=== PATIENT | male | born 1950 | race Caucasian/White ===

== ENCOUNTER 2024-03-27 00:40 | Inpatient (IN) | payer OTHER ==
--- OUTSIDE RECORDS SUMMARY | 2024-03-27 00:43 | XMS REPORT | Continuity of Care Document ---
Author Name Unknown Address [address] [facility] [address] [place] [address] [facility] thconnect Address [address] [facility] 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 Name Role Phone MADAN FRIAS Primary Care Physician Unavailab JESSY Archer Attending Clinician Unavail able LONI FISHMAN Attending Clinician Unavailable CALCIUM SCORE SCAN, SELF REQUES Attending Clinic berna Unavailable NEHEMIAH PATEL [facility] Attending Clinician Unavailable MADAN FRIAS Attending Clinician Unavailable LONI FISHMAN Attending Clinician Unavailable ADAM VAZQUEZ APN Attending Clinician LONI Rosa Admitting Clinician Unavailable Payers Payer Name Policy Type Policy Number Effective Date Expirati on Date Source 2 M [id number] Allergies, Adverse Reactions, Alerts Allergy Name Allergy Type Status Severity Reaction(s) Onset Date Inactive Date Treating Clinician Comments Source Unable to Assess UA Active 01-18 05:57: 50 [facility] No Known Allergie s NA Active 01-15 10:04: 22 [facility] No Known Allergie s NA Active 12-23 09:06: 50 [facility] No Known Allergie s NA Active 12-22 09:39: 39 [facility] No Known Allergie s NA Active 12-22 09:39: 25 [facility] No Known Allergie s NA Active 12-22 09:39: 20 [facility] ([facility]) No Known Allergie s NA Active 12-22 09:38: 59 [facility] ([facility]) No Known Allergie s NA Active 12-22 09:38: 18 [facility] ([facility]) No Known Allergie s NA Active 11-25 14:47: 22 [facility] ([facility]) Medications Ordered Medication Name Filled Medication Name Start Date Stop Date Current Medication? Ordering Clinician Indication Dosage Frequency Signature (SIG) Comments Components Source nitroglycer in SL 0.4 MG SUBL nitroglycer in SL 0.4 MG SUBL 01-18 10:35: 00 01-18 10:35 :00 No .4mg medication :nitroglyc marina SL 0.4 MG SUBL|dose: 0.4 mg|route:S UBLINGUAL| frequency: ONE TIME [facility] [place] ([facility]) metoprolol INJ 5 MG/5 ML SOLN metoprolol INJ 5 MG/5 ML SOLN 01-18 10:35: 00 01-18 10:35 :00 No 5mg medication :metoprolo l INJ 5 MG/5 ML SOLN|dose: 5.0 mg|route:I NTRAVENOUS |frequency :ONE TIME [facility] [place] ([facility]) iopamidol-3 70 INJ 76 % SOLN iopamidol-3 70 INJ 76 % SOLN 01-18 10:19: 00 01-18 10:19 :00 No 100mL medication :iopamidol -370 INJ 76 % SOLN|dose: 100.0 mL|route:I NTRAVENOUS |frequency :ONE TIME [facility] [place] ([facility]) NS SOLN NS SOLN 01-18 10:19: 00 01-18 10:19 :00 No 50mL medication :NS SOLN|dose: 50.0 mL|route:I NTRAVENOUS |frequency :ONE TIME [facility] [place] ([facility]) 1/2 NS SOLN 1/2 NS SOLN 01-18 09:00: 00 01-18 15:55 :00 No 250mL medication :1/2 NS SOLN|dose: 250.0 mL|route:I NTRAVENOUS |frequency :ONE TIME [facility] ([facility]) nitroglycer in SL 0.4 MG SUBL nitroglycer in SL 0.4 MG SUBL 12-22 10:29: 00 12-22 09:38 :00 No .4mg medication :nitroglyc marina SL 0.4 MG SUBL|dose: 0.4 mg|route:S UBLINGUAL| frequency: ONE TIME [facility] metoprolol INJ 5 MG/5 ML SOLN metoprolol INJ 5 MG/5 ML SOLN 12-22 10:29: 00 12-22 09:38 :00 No 5mg medication :metoprolo l INJ 5 MG/5 ML SOLN|dose: 5.0 mg|route:I NTRAVENOUS |frequency :ONE TIME [facility] ([facility]) Encounters Start Date/Time End Date/Time Encounter Type Admission Type Attending [facility] Care Facility Care Department Encounter ID Source 2023-11-17 08:30:00 Inpatient [facility] [id number] [facility] 2022-01-15 10:04:26 Outpatient 3 LONI FISHMAN [facility] [id number] [facility] 2021-12-02 14:00:00 Inpatient EL CALCIUM SCORE SCAN, SELF LUCIA MYERS [id number] [facility] 2021-11-25 14:47:25 Outpatient 3 LONI FISHMANE [id number] [facility] 2021-09-02 09:53:38 Outpatient LUCIA MYERS [id number] [facility] 2024-01-09 11:16:00 2024-01-09 11:16:00 [id number] [facility] 2023-12-15 07:41:00 2023-12-15 07:41:00 Outpatient JESSY SONG [facility] [id number] [facility] 2023-08-05 09:46:00 2023-08-05 09:46:[address] [facility] [id number] [facility] 2022-02-25 08:42:00 2022-02-25 08:42:00 Outpatient BURAK LONI FISHMAN [id number] [facility] 2022-02-01 08:30:00 2022-02-01 08:30:[address] [facility] [id number] 2022-02-01 08:30:00 2022-02-01 08:30:00 Outpatient ADAM CELESTIN LUCIA MYERS [id number] [facility] 2022-01-18 20:55:00 2022-01-18 20:55:00 Outpatient Encounter [facility] [id number] 2022-01-18 15:55:00 2022-01-18 15:55:00 Outpatient 3 LONI FISHMAN [facility] [id number] [facility] ([facility] 2022-01-18 15:55:00 2022-01-18 15:55:00 Outpatient Encounter 3 LONI FISHMAN [facility] [id number] [facility] ([facility]) 2021-12-22 14:38:00 2021-12-22 14:38:00 Outpatient Encounter [facility] [id number] 2021-12-22 09:38:00 2021-12-22 09:38:00 Outpatient Encounter [facility] [id number] [facility] 2021-12-22 09:38:00 2021-12-22 09:38:00 Outpatient 3 LONI FISHMAN [facility] [id number] [facility] [place] ([facility]) 2021-11-11 13:00:00 2021-11-11 13:00:00 Outpatient BURAK ADAM VAZQUEZ [id number] [facility] 2021-09-25 13:32:00 2021-09-25 13:32:00 Outpatient ADAM CELESTIN [id number] [facility] 2021-09-02 09:31:00 2021-09-02 09:31:00 Outpatient BURAK LONI FISHMAN [id number] [facility] Results Test Description Test Time Test Comments Results Resul t Comments Source [facility] 2022-01-08 1 17:32:[address] [facility] 1950 Sex: M [address] [id number] IMAGING REPORTPatient Name: NASIM RAODate of Service: [id number]: 71 Sex: M Order #: [id number] Room: [facility]: 1950 X-Ray Number: [id number] Record Number: [id number] Hospital Number: [id number] Physician: Anthony FISHMANing Physician: CANDICE FISHMAN [facility]ASC[facility] 01/18/2022 4:44 PMHistory: sobComparisons: None Available.Maximum intensity projection (MIP) images were performed and utilized forinterpretation of the current examination. This CT exam was performedusing one or more of the following dose reduction techniques: Automatedexposure control, adjustment of the MA and/or KV according to patient sizeor use of iterative reconstruction technique.Contrast administered for this study per protocol: Isovue 370 - 100 mLIVCoronary artery calcifications:Total coronary artery calcium score is 611.9 defined as significant calciumburden.Segmental artery calcification is as follows:Left Main coronary 0LAD 323.8Circumflex 250RCA 38.2Total calcium score is 611.9.REFERENCE NORMS OF CALCIUM SCORE FOLLOWS:No identified calcium ( 0)Minimal identifiable calcium (1-10)Mild calcification (11-100)Moderate calcification (101-400)Significant calcification (400 and above).This is consistent with a NO amount of calcification burden of thecoronary arteries. The amount of calcium is closely correlated with theextent of coronary atherosclerosis. With a significant amount (defined as401 and above) of coronary calcium, a moderate to high risk of acardiovascular event within the next 2-5 years can be assumed ( O'Fredrick,Circulation 2000; 102:126).POSTCONTRAST SEGMENT ANALYSIS:Left Main coronary artery: There is no hemodynamically significantstenosis identified.Right coronary artery: There is no hemodynamically significant stenosisidentified.LAD: Evaluation of the proximal LAD in areas that are densely calcifiedare in inconclusive. Further evaluation is warranted.Circumflex: Evaluation of the mid circumflex in areas that are denselycalcified are in inconclusive. Further evaluation is warrantedThere is emphysema and peripheral fibrosis within the lungs.IMPRESSION:Evaluation of the proximal LAD and circumflex arteries in areas that aredensely calcified are in inconclusive. Further evaluation is warrantedElectronically Signed By: Gutierrez Prado M.D., 01/18/2022 5:29 PMLegally authenticated by JOHAN HAYES 2022-01-18 17:29:54 Creatinine [Mass/volume] in [id number] 10:16:00* Test Item Value Reference Range Interpretation Comme nts Creatinine [Mass/volume] in Blood (test code = 58222-5) 1.9 MG/DL 0.7-1.5 N [facility] Notes Date/Time Note Provider Source 2022-01-18 17:29:[address] [address] DIAGNOSTIC IMAGING REPORT Patient Name: NASIM RAO Date of Service: 01-18-2022 Age: 71 Sex: M Order #: [id number] Room: [facility] : 1950 X-Ray Number: [id number] Hospital Number: [id number] Admitting Physician: LONI FISHMAN Ordering Physician: LONI FISHMAN [facility] 01/18/2022 4:44 PM History: sob Comparisons: None Available. Maximum intensity projection (MIP) images were performed and utilized for interpretation of the current examination. This CT exam was performed using one or more of the following dose reduction techniques: Automated exposure control, adjustment of the MA and/or KV according to patient size or use of iterative reconstruction technique. Contrast administered for this study per protocol: Isovue 370 - 100 mL IV Coronary artery calcifications: Total coronary artery calcium score is 611.9 defined as significant calcium burden. Segmental artery calcification is as follows: Left Main coronary 0 LAD 323.8 Circumflex 250 RCA 38.2 Total calcium score is 611.9. REFERENCE NORMS OF CALCIUM SCORE FOLLOWS: No identified calcium ( 0) Minimal identifiable calcium (1-10) Mild calcification (11-100) Moderate calcification (101-400) Significant calcification (400 and above). This is consistent with a NO amount of calcification burden of the coronary arteries. The amount of calcium is closely correlated with the extent of coronary atherosclerosis. With a significant amount (defined as 401 and above) of coronary calcium, a moderate to high risk of a cardiovascular event within the next 2-5 years can be assumed ( O'Fredrick, Circulation 2000; 102:126). POSTCONTRAST SEGMENT ANALYSIS: Left Main coronary artery: There is no hemodynamically significant stenosis identified. Right coronary artery: There is no hemodynamically significant stenosis identified. LAD: Evaluation of the proximal LAD in areas that are densely calcified are in inconclusive. Further evaluation is warranted. Circumflex: Evaluation of the mid circumflex in areas that are densely calcified are in inconclusive. Further evaluation is warranted There is emphysema and peripheral fibrosis within the lungs. IMPRESSION: Evaluation of the proximal LAD and circumflex arteries in areas that are densely calcified are in inconclusive. Further evaluation is warranted Electronically Signed By: Gutierrez Prado M.D., 01/18/2022 5:29 PM Legally authenticated by JOHAN HAYES 2022-01-18 17:29:54 [facility] Code System Description Frequency Occurrences Priority [place] [id number] [facility] Coronary arteries CT angiogram and 3D reconstru ONE TIME 0 Routine January 18, 2022 3:13:00 PM [facility] KYE IVEY [id number] on January 18, 2022 9:44:00 PM [facility] SCHEDULED PROCEDURES Code System Description Status Scheduled Date Updated By Patient scheduled procedure information is not available. [facility]"
[2024-03-27] MEDS ORDERED: ALBUTEROL 2.5 MG/3 ML NEB SOL ONE ×2 (00:57→13:53)
[2024-03-27] MEDS ORDERED: METHYLPREDNISOLONE 125 MG INJ ONE (00:57)
[2024-03-27 01:52] LABS: D-Dimer 0.779 FEUug/mL (0-0.500); PT Prothrombin Time 13.1 SECONDS (9.4-12.5); PTT, Activated Partial Thromb 24.5 SECONDS (24.3-36.9); Protime INR 1.18
[2024-03-27 01:53] LABS: Arterial Blood Carboxyhemoglob 1.5 % (0-1.5); Blood Gas Oxyhemoglobin 96.3 % (94-97); Blood O2 Saturation 99.3 % (92-98.5)
[2024-03-27 02:00] LABS: Absolute Eosinophils 0.1 K/uL (0-0.5); Absolute Lymphocytes (CBC) 0.5 K/uL (0.7-4.9); Absolute Monocytes 0.6 K/uL (0.1-1.3); Absolute Neutrophil 9.7 K/uL (1.8-8.0); Basophils % 0.2 % (0-1.3); Eosinophils % 1.3 % (0-4.4); Hematocrit 26.5 % (39.6-49.0); Hemoglobin 8.5 g/dL (13.6-17.9); Lymphocytes % 4.9 % (15.3-44.8); MCH 30.3 pg (27.0-35.0); MCHC 32.2 g/dL (32.0-36.0); MPV 7.9 fL (7.6-11.3); Monocytes % 5.7 % (3.3-12.3); Neutrophils % 87.9 % (41.7-73.7); Platelets 358 thou/uL (152-406); RBC Red Blood Cell Count 2.81 M/uL (4.33-5.43); Red Cell Distribution Width 15.2 % (12.1-15.2)
[2024-03-27 02:04] LABS: ALT/SGPT 16 U/L (16-61); AST/SGOT 21 U/L (15-37); Albumin 2.4 g/dL (3.4-5.0); Albumin/Globulin Ratio 0.7 (1.1-1.8); Alkaline Phosphatase 56 U/L (45-117); Anion Gap 9.1 mEq/L (5.0-15.0); BUN Blood Urea Nitrogen 14 mg/dL (7-18); Bicarbonate 28 mEq/L (21-32); Bilirubin Total 0.3 mg/dL (0.2-1.0); Creatine Phosphokinase 52 U/L (39-308); Globulin 3.4 g/dL (2.3-3.5); Glomerular Filtration Rate 54 ml/min (=/>90); Glucose Level 124 mg/dL (74-106); Lipase 21 U/L (13-75); Magnesium 1.6 mg/dL (1.6-2.4); NT PRO-BNP 554 pg/mL (<450); Potassium 4.1 mEq/L (3.5-5.1); Protein, Total 5.8 g/dL (6.4-8.2); Sodium Level 137 mEq/L (136-145); Troponin High Sensitivity 37.3 pg/mL (<58.9)
[2024-03-27 02:07] LABS: Bilirubin Direct < 0.2 mg/dL (0-0.2); Bilirubin Indirect, Calculated 0.1 mg/dL (0.2-0.8)
[2024-03-27 02:35] LABS: Band Neutrophils 6 % (0-1); Differential Total Cells Count 100; Eosinophils 1 % (0-3); Lymphocytes 9 % (15-42); Monocytes 8 % (0-10); Segmented Neutrophils 75 % (40-80)
[2024-03-27 02:36] LABS: Blood Morphology Comment NOTED (NOT SEEN); Platelet Estimate ADEQ; Polychromasia 1+
--- NOTE | 2024-03-27 05:14 | EDPHYS ---
Physician Documentation [facility] Name: Sami Hubbard Age: 74 yrs Sex: Male : 1950 Arrival Date: 03/27/2024 Time: 00:40 Bed 3 Private MD: ED Physician Florencio Reyez HPI: 03/27 04:59 This 74 yrs old Male presents to ER via EMS with complaints of Shortness Of sp4 Breath. 05:11 74-year-old male with past medical history of asbestosis and COPD, on oxygen at home 5 sp4 L oxygen flow [id number], presents with acute worsening dyspnea associated with hypoxemia at home associated with cyanosis.. Historical: - Allergies: 00:59 No Known Allergies; al5 - PMHx: 00:59 asbestos; COPD; al5 - PSHx: 00:59 hernia; r hip surgery; ulcer repair; al5 - Immunization history:: Adult Immunizations up to date. - Infectious Disease History:: Denies. - Social history:: Smoking status: Patient/guardian denies using tobacco, the patient reports quitting approximately 40 years ago. - Family history:: not pertinent. ROS: 05:11 Constitutional: Negative for fever, chills, and weight loss, positive dyspnea, sp4 positive hypoxemia, positive cyanosis 05:11 All other systems are negative, Exam: 05:09 Constitutional: This is a well developed, well nourished patient who is awake, alert, sp4 moderate distress, on high flow oxygen. Head/Face: Normocephalic, atraumatic. Eyes: Pupils equal round and reactive to light, extra-ocular motions intact. Lids and lashes normal. Conjunctiva and sclera are not injected. Cornea within normal limits. Periorbital areas with no swelling, redness, or edema. ENT: Nares patent. No nasal discharge, no septal abnormalities noted. Tympanic membranes are normal and external auditory canals are clear. Oropharynx with no redness, swelling, or masses, exudates, or evidence of obstruction, uvula midline. Mucous membranes moist. Neck: Trachea midline, no thyromegaly or masses palpated, and no cervical lymphadenopathy. Supple, full range of motion without nuchal rigidity, or vertebral point tenderness. Chest/axilla: Normal chest wall appearance and motion. Nontender with no deformity. No lesions are appreciated. Cardiovascular: Regular rate and rhythm with a normal S1 and S2. No gallops, murmurs, or rubs. Normal PMI, no JVD. No pulse deficits. Respiratory: Lungs have equal breath sounds bilaterally, clear to auscultation and percussion. No rales, rhonchi or wheezes noted. No increased work of breathing, no retractions or nasal flaring. Abdomen/GI: Soft, with normal bowel sounds. No distension or tympany. No guarding or rebound. No evidence of tenderness throughout. Back: No spinal tenderness. No costovertebral tenderness. Skin: Warm, dry with normal turgor. Normal color with no rashes, no lesions, and no evidence of cellulitis. MS/ Extremity: Pulses equal, no cyanosis. Neurovascular intact. Full, normal range of motion. Neuro: Awake and alert, GCS 15, oriented to person, place, time, and situation. Cranial nerves II-XII grossly intact. Motor strength 5/5 in all extremities. Sensory grossly intact. Psych: Awake, alert, with orientation to person, place and time. Behavior, mood, and affect are within normal limits 05:09 ECG was reviewed by the Attending Physician. EKG at 0 110 normal sinus rhythm, normal EKG, rate 67, territory movement artifact Vital Signs: 00:47 BP 119 / 62; Pulse 71; Resp 18; Pulse Ox 96% on 6 lpm high flow nasal cannula; al5 00:55 BP 139 / 69; Pulse 72; Resp 19; Temp 98.4; Pulse Ox 100% on 15 lpm Non-rebreather mask; al5 Weight 113.4 kg; Height 5 ft. 10 in. ; Pain 0/10; 01:00 BP 114 / 62; Pulse 67; Resp 18; Pulse Ox 100% on 6 lpm high flow nasal cannula; al5 01:15 BP 106 / 59; Pulse 68; Resp 17; Pulse Ox 95% on high flow nasal cannula; al5 01:30 BP 113 / 66; Pulse 63; Resp 17; Pulse Ox 100% on 6 lpm high flow nasal cannula; al5 01:45 BP 112 / 61; Pulse 71; Resp 18; Pulse Ox 99% on 6 lpm high flow nasal cannula; al5 02:00 BP 101 / 60; Pulse 72; Resp 18; Pulse Ox 95% on 6 lpm high flow nasal cannula; al5 02:30 BP 108 / 61; Pulse 74; Resp 18; Pulse Ox 98% on 6 lpm high flow nasal cannula; al5 03:00 BP 120 / 68; Pulse 79; Resp 18; Pulse Ox 95% on 6 lpm high flow nasal cannula; al5 03:30 BP 125 / 56; Pulse 67; Resp 18; Pulse Ox 97% on 6 lpm high flow nasal cannula; al5 04:00 BP 101 / 58; Pulse 65; Resp 19; Pulse Ox 98% on 6 lpm high flow nasal cannula; al5 04:30 BP 112 / 71; Pulse 63; Resp 17; Pulse Ox 97% on high flow nasal cannula; al5 00:55 Body Mass Index 35.87 (113.40 kg, 177.8 cm) al5 00:55 Pain Scale: Adult al5 MDM: 00:44 Patient medically screened. sp4 04:57 ED course: EXAM: CTAngiography Chest With Intravenous Contrast CLINICAL HISTORY: The sp4 patient is 74 years old and is Male; CHEST PAIN TECHNIQUE: Axial computed tomographic angiography images of the chest with intravenous contrast. Sagittal and coronal reformatted images were created and reviewed. This CT exam was performed using one or more of the following dose reduction techniques: automated exposure control, adjustment of the mA and/or kV according to patient size, and/or use of iterative reconstruction technique. MIP reconstructed images were created and reviewed. COMPARISON: No relevant prior studies available. FINDINGS: Pulmonary arteries: No PE identified. Aorta: No acute findings. No thoracic aortic aneurysm. Lungs: Moderate bilateral groundglass opacities. No focal consolidation. Pleural space: No significant effusion. No pneumothorax. Heart: Cardiomegaly. No significant pericardial fluid. Bones/joints: Vertebral Schmorl's nodes. No acute compression fracture. No acute rib fracture visualized. No dislocation. Soft tissues: Unremarkable. Lymph nodes: Enlarged right hilar and subcarinal lymph nodes. Enlarged left paratracheal lymph node up to 2.2 cm. IMPRESSION: 1. No PE identified. 2. Moderate bilateral groundglass opacities, correlate clinically for atypical infection. 3. Pathologic adenopathy as above. Electronically signed by: Shannan Álvarez MD 03/27/2024 . 04:59 Differential diagnosis: Anemia Anxiety Reaction asthma, Bronchitis CHF exacerbation, sp4 Chronic Obstructive Pulmonary Disease. Data reviewed: vital signs, nurses notes, lab test result(s), radiologic studies, CT scan. 05:11 ED course: Patient CT reveals significant bilateral atypical infiltrates indicative of sp4 atypical pneumonia. Patient warrants admission for further management. 03/27 00:44 Order name: BMP; Complete Time: 04:54 sp4 03/27 00:44 Order name: Blood Culture Adult (2) sp4 03/27 00:44 Order name: CBC with Diff; Complete Time: 04:54 sp4 03/27 00:44 Order name: CPK; Complete Time: 04:54 sp4 03/27 00:44 Order name: D-Dimer; Complete Time: 04:54 sp4 03/27 00:44 Order name: Hepatic Function; Complete Time: 04:54 sp4 03/27 00:44 Order name: Lipase; Complete Time: 04:54 sp4 03/27 00:44 Order name: Magnesium; Complete Time: 04:54 sp4 03/27 00:44 Order name: NT PRO-BNP; Complete Time: 04:54 sp4 03/27 00:44 Order name: PT-INR; Complete Time: 04:54 sp4 03/27 00:44 Order name: Ptt, Activated; Complete Time: 04:54 sp4 03/27 00:44 Order name: Troponin HS; Complete Time: 04:54 sp4 03/27 00:44 Order name: ABG; Complete Time: 04:54 sp4 03/27 02:03 Order name: Manual Differential; Complete Time: 04:54 EDMS 03/27 05:45 Order name: Urinalysis w/ reflexes EDMS 03/27 05:45 Order name: CBC with Automated Diff EDMS 03/27 05:45 Order name: CBC with Automated Diff EDMS 03/27 05:45 Order name: Comprehensive Metabolic Panel EDMS 03/27 05:45 Order name: Comprehensive Metabolic Panel EDMS 03/27 05:45 Order name: Magnesium EDMS 03/27 05:45 Order name: Magnesium EDMS 03/27 05:45 Order name: Phosphorus EDMS 03/27 05:45 Order name: Phosphorus EDMS 03/27 00:44 Order name: CT Chest For PE Angio sp4 03/27 00:44 Order name: EKG; Complete Time: 00:45 sp4 03/27 05:45 Order name: CONS Physician Consult EDIL 03/27 00:44 Order name: Cardiac monitoring; Complete Time: 01:38 sp4 03/27 00:44 Order name: EKG - Nurse/Tech; Complete Time: 01:14 sp4 03/27 00:44 Order name: IV Saline Lock; Complete Time: 01:08 sp4 03/27 00:44 Order name: Labs collected and sent; Complete Time: 01:08 sp4 03/27 00:44 Order name: O2 Per Protocol; Complete Time: :08 sp4 03/27 00:44 Order name: O2 Sat Monitoring; Complete Time: 01:08 sp4 EC:09 Rate is 67 beats/min. Rhythm is regular, Normal Sinus Rhythm. QRS [place] is Normal. RI sp4 interval is normal. QRS interval is normal. QT interval is normal. No Q waves. T waves are Normal. No ST changes noted. Clinical impression: Normal ECG. Interpreted by me. Reviewed by me. Administered Medications: 01:37 Drug: Albuterol Inhalation 2.5 mg Inhalation every 20 minutes x3 Route: Inhalation; al5 01:37 Drug: MethylPrednisoLONE IVP 125 mg IVP once Route: IVP; Site: left antecubital; al5 02:02 Follow up: Response: No adverse reaction al5 01:47 Drug: Albuterol Inhalation 2.5 mg Inhalation every 20 minutes x3 Route: Inhalation; al5 01:57 Drug: Albuterol Inhalation 2.5 mg Inhalation every 20 minutes x3 Route: Inhalation; al5 02:59 Follow up: Response: No adverse reaction; Other; difficulty breathing decreased al5 05:20 Drug: Piperacillin-Tazobactam IVPB 3.375 grams IVPB once over 60 mins; (mix in NS 100 al5 mL) Route: IVPB; Infused Over: 60 mins; Site: left antecubital; 06:50 Follow up: Response: No adverse reaction; IV Status: Completed infusion; IV Intake: al5 100ml 08:15 Drug: vancoMYCIN IVPB 2 grams IVPB at calculated rate once Route: IVPB; Rate: iw calculated rate; Site: left antecubital; 10:00 Follow up: Response: No adverse reaction; IV Status: Completed infusion; IV Intake: cm10 500ml Disposition Summary: 03/27/24 05:13 Hospitalization Ordered Notes: Hospitalization Status: Inpatient Admission sp4 Provider: Ab Arita sp4 Condition: Stable sp4 Problem: new sp4 Symptoms: have improved sp4 Bed/Room Type: Standard sp4 Location: Telemetry/MedSurg (Inpatient)(03/27/24 15:48) ja1 Room Assignment: 229(03/27/24 15:48) ja Diagnosis - Acute atypical bilateral pneumonia, acute dyspnea, acute hypoxemia, chronic sp4 asbestosis Forms: - Medication Reconciliation Form sp4 - SBAR form sp4 - Leadership Thank You Letter sp4 Signatures: Dispatcher [employer] EDFaustina Ventura RN RN Anya Rowe RN RN cg Watson Murcia RN RN ja1 Florencio Reyez MD MD sp4 Amber Dozier RN RN [id number] Sailaja Chatman RN cm10 Corrections: (The following items were deleted from the chart) 05:52 05:13 Telemetry/MedSurg (Inpatient) sp4 cg 05:52 05:13 sp4 cg 15:48 05:52 [facility] ER HOLD cg ja1 15:48 05:52 ERHOLD- cg 1
--- NOTE | 2024-03-27 05:14 | ER ---
Nurse's Notes [facility] Name: Sami Hubbard Age: 74 yrs Sex: Male : 1950 Arrival Date: 03/27/2024 Time: 00:40 Bed 3 Private MD: Diagnosis: Acute atypical bilateral pneumonia, acute dyspnea, acute hypoxemia, chronic asbestosis Presentation: 03/27 00:55 Chief complaint: Patient states: shortness of breath and weakness x1.5 hours. al5 Coronavirus screen: At this time, the client does not indicate any symptoms associated with coronavirus-19. Ebola Screen: No symptoms or risks identified at this time. Initial Sepsis Screen: Does the patient meet any 2 criteria? No. Patient's initial sepsis screen is negative. Does the patient have a suspected source of infection? No. Patient's initial sepsis screen is negative. Risk Assessment: Do you want to hurt yourself or someone else? Patient reports no desire to harm self or others. Onset of symptoms was March 27, 2024. 00:55 Method Of Arrival: EMS: [facility] al5 00:55 Acuity: KALLI 2 al5 Triage Assessment: 01:02 General: Appears in no apparent distress. Behavior is calm, cooperative. Pain: Denies al5 pain. EENT: No signs and/or symptoms were reported regarding the EENT system. Neuro: Level of Consciousness is awake, alert, obeys commands, Oriented to person, place, time, situation. Cardiovascular: Patient's skin is warm and dry. Respiratory: Reports shortness of breath Airway is patent Respiratory effort is even, shallow, Respiratory pattern is regular, symmetrical. Respiratory: Onset: The symptoms/episode began/occurred suddenly, the patient has moderate shortness of breath. GI: No signs and/or symptoms were reported involving the gastrointestinal system. : No signs and/or symptoms were reported regarding the genitourinary system. Derm: Skin is intact, Skin is pink, warm \\T\\ dry. normal. Musculoskeletal: No signs and/or symptoms reported regarding the musculoskeletal system. Historical: - Allergies: 00:59 No Known Allergies; al5 - PMHx: 00:59 asbestos; COPD; al5 - PSHx: 00:59 hernia; r hip surgery; ulcer repair; al5 - Immunization history:: Adult Immunizations up to date. - Infectious Disease History:: Denies. - Social history:: Smoking status: Patient/guardian denies using tobacco, the patient reports quitting approximately 40 years ago. - Family history:: not pertinent. Screenin:06 [facility] ED Fall Risk Assessment (Adult) History of falling in the last 3 months, al5 including since admission No falls in past 3 months (0 pts) Confusion or Disorientation No (0 pts) Intoxicated or Sedated No (0 pts) Impaired Gait No (0 pts) Mobility Assist Device Used No (0 pt) Altered Elimination No (0 pt) Score/Fall Risk Level 0 - 2 = Low Risk Oriented to surroundings, Maintained a safe environment, Hourly rounding (assess needs \\T\\ fall precautionary measures) done. Abuse screen: Denies threats or abuse. Denies injuries from another. Nutritional screening: No deficits noted. Tuberculosis screening: No symptoms or risk factors identified. Assessment: 01:03 General: Appears in no apparent distress. Behavior is calm, cooperative. Pain: Denies al5 pain. Neuro: Level of Consciousness is awake, alert, obeys commands, Oriented to person, place, time, situation. Cardiovascular: Capillary refill < 3 seconds Patient's skin is warm and dry. Rhythm is regular. Respiratory: Airway is patent Respiratory effort is even, shallow, Respiratory pattern is regular, symmetrical. GI: No signs and/or symptoms were reported involving the gastrointestinal system. : No signs and/or symptoms were reported regarding the genitourinary system. EENT: No signs and/or symptoms were reported regarding the EENT system. Derm: Skin is intact, Skin is pink, warm \\T\\ dry. normal. Musculoskeletal: No signs and/or symptoms reported regarding the musculoskeletal system. 01:07 Respiratory: Breath sounds are clear bilaterally. al5 02:20 Reassessment: Patient appears in no apparent distress at this time. No changes from al5 previously documented assessment. Patient and/or family updated on plan of care and expected duration. Pain level reassessed. Patient is alert, oriented x 3, equal unlabored respirations, skin warm/dry/pink. 03:47 Reassessment: Patient appears in no apparent distress at this time. Patient and/or al5 family updated on plan of care and expected duration. Pain level reassessed. Patient is alert, oriented x 3, equal unlabored respirations, skin warm/dry/pink. patient experiencing shortness of breath after exerting himself to sit up in the bed to use the urinal, o2 sat dropped. md and rt notified, increased patient o2 at this time to oxygenate patient. 04:10 Reassessment: Patient appears in no apparent distress at this time. Patient and/or al5 family updated on plan of care and expected duration. Pain level reassessed. Patient is alert, oriented x 3, equal unlabored respirations, skin warm/dry/pink. patient o2 saturation back to baseline after wean back down to 6 L high flow nasal cannula. 05:48 Reassessment: Patient appears in no apparent distress at this time. No changes from al5 previously documented assessment. Patient and/or family updated on plan of care and expected duration. Pain level reassessed. Patient is alert, oriented x 3, equal unlabored respirations, skin warm/dry/pink. Vital Signs: 00:47 BP 119 / 62; Pulse 71; Resp 18; Pulse Ox 96% on 6 lpm high flow nasal cannula; al5 00:55 BP 139 / 69; Pulse 72; Resp 19; Temp 98.4; Pulse Ox 100% on 15 lpm Non-rebreather mask; al5 Weight 113.4 kg; Height 5 ft. 10 in. ; Pain 0/10; 01:00 BP 114 / 62; Pulse 67; Resp 18; Pulse Ox 100% on 6 lpm high flow nasal cannula; al5 01:15 BP 106 / 59; Pulse 68; Resp 17; Pulse Ox 95% on high flow nasal cannula; al5 01:30 BP 113 / 66; Pulse 63; Resp 17; Pulse Ox 100% on 6 lpm high flow nasal cannula; al5 01:45 BP 112 / 61; Pulse 71; Resp 18; Pulse Ox 99% on 6 lpm high flow nasal cannula; al5 02:00 BP 101 / 60; Pulse 72; Resp 18; Pulse Ox 95% on 6 lpm high flow nasal cannula; al5 02:30 BP 108 / 61; Pulse 74; Resp 18; Pulse Ox 98% on 6 lpm high flow nasal cannula; al5 03:00 BP 120 / 68; Pulse 79; Resp 18; Pulse Ox 95% on 6 lpm high flow nasal cannula; al5 03:30 BP 125 / 56; Pulse 67; Resp 18; Pulse Ox 97% on 6 lpm high flow nasal cannula; al5 04:00 BP 101 / 58; Pulse 65; Resp 19; Pulse Ox 98% on 6 lpm high flow nasal cannula; al5 04:30 BP 112 / 71; Pulse 63; Resp 17; Pulse Ox 97% on high flow nasal cannula; al5 00:55 Body Mass Index 35.87 (113.40 kg, 177.8 cm) al5 00:55 Pain Scale: Adult al5 ED Course: 00:41 Patient arrived in ED. jj6 00:43 Florencio Reyez MD is Attending Physician. sp4 00:50 Amber Dozier RN is Primary Nurse. al5 00:59 Triage completed. al5 01:03 Arm band placed on right wrist. Patient placed in the treatment room, on a stretcher. al5 01:07 Patient has correct armband on for positive identification. Bed in low position. Call al5 light in reach. Side rails up X2. Provided Education on: processes and procedures. 01:07 No provider procedures requiring assistance completed. Maintain EMS IV. Dressing al5 intact. Good blood return noted. Site clean \\T\\ dry. Gauge \\T\\ site: 20G RAC. Flushed with 10 mL NS. 01:08 Troponin HS Sent. al5 01:08 Ptt, Activated Sent. al5 01:08 PT-INR Sent. al5 01:08 NT PRO-BNP Sent. al5 01:08 Magnesium Sent. al5 01:08 Lipase Sent. al5 01:08 Hepatic Function Sent. al5 01:08 D-Dimer Sent. al5 01:08 BMP Sent. al5 02:53 Second set of blood cultures drawn by ia. oh1 03:10 Blood Culture Adult (2) Sent. oh1 03:11 CT Chest For PE Angio In Process Unspecified. EDMS 05:12 Ab Arita MD is Hospitalizing Provider. sp4 05:55 Patient admitted, IV remains in place. al5 14:16 1416 CM met with Mr James at the bedside in the ED exam room. Patient identified by ane name and . Demographic sheet confirmed. Patient states he lives with his in the downstairs portion of his step daughter's home. Patient states that prior to admission, he performs ADLs , especially showering, with assistance from his . He reports a physical limitation in the home is that his wheelchair is too wide to fit through many of the doors. He inquired about a more narrow, lightweight wheelchair. Other DME in the home includes a couple canes, a rollator, oxygen concentrator, portable oxygen tanks through [facility]. No HH, or other medical services, but expressed interest in HH, perhaps for PT. Mr James reports he becomes very short of breath while performing ADLs and is on 5L at all times. He also states currently there is no MPOA in place but it is "in progress". Patient's plan is to return to his step daughter's home, with PT and states his his or step daughter may transport him home upon discharge. CM team will continue to follow and coordinate care. Administered Medications: 01:37 Drug: Albuterol Inhalation 2.5 mg Inhalation every 20 minutes x3 Route: Inhalation; al5 01:37 Drug: MethylPrednisoLONE IVP 125 mg IVP once Route: IVP; Site: left antecubital; al5 02:02 Follow up: Response: No adverse reaction al5 01:47 Drug: Albuterol Inhalation 2.5 mg Inhalation every 20 minutes x3 Route: Inhalation; al5 01:57 Drug: Albuterol Inhalation 2.5 mg Inhalation every 20 minutes x3 Route: Inhalation; al5 02:59 Follow up: Response: No adverse reaction; Other; difficulty breathing decreased al5 05:20 Drug: Piperacillin-Tazobactam IVPB 3.375 grams IVPB once over 60 mins; (mix in NS 100 al5 mL) Route: IVPB; Infused Over: 60 mins; Site: left antecubital; 06:50 Follow up: Response: No adverse reaction; IV Status: Completed infusion; IV Intake: al5 100ml 08:15 Drug: vancoMYCIN IVPB 2 grams IVPB at calculated rate once Route: IVPB; Rate: iw calculated rate; Site: left antecubital; 10:00 Follow up: Response: No adverse reaction; IV Status: Completed infusion; IV Intake: cm10 500ml Medication: 01:06 VIS not applicable for this client. al5 Intake: 06:50 IV: 100ml; Total: 100ml. al5 10:00 IV: 500ml; Total: 600ml. cm10 Outcome: 05:13 Decision to Hospitalize by Provider. sp4 05:55 Admitted to ER Hold. Please see [facility] for further documentation. al5 05:55 Condition: stable 05:55 Instructed on the need for admit, 17:04 Patient left the ED. ll1 Signatures: Dispatcher [employer] EDFaustina Ventura, RN Argelia Servin RN RN ll1 Lyudmila Herron6 Florencio Reyez MD MD sp4 Sailaja Chatman RN RN cm10 Amber Dozier RN RN al5 Joanne Garnica RN RN ane Hinojosa, Olivia [facility]
[2024-03-27] MEDS ORDERED: PIPERACIL/TAZO 3.375 GM VIAL IV ONE (05:22)
[2024-03-27] MEDS ORDERED: NA CHLORIDE 0.9% 100 ML ONE ×2 (05:22→09:12)
--- NOTE | 2024-03-27 05:40 | P.HP ---
Certification for Inpatient Patient admitted to: Inpatient With expected LOS: >2 Midnights Practitioner: I am a practitioner with admitting privileges, knowledge of patient current condition, hospital course, and medical plan of care. Services: Services provided to patient in accordance with Admission requirements found in Title 42 Section 412.3 of the Code of Federal Regulations Patient History Date of Service: 03/27/24 Reason for admission: SOB History of Present Illness: 74-year-old male with past medical history of asbestosis and COPD, on oxygen at home 5 liters by nasal cannula [id number] came with shortness of breath which has been worsening over the last 2 days and has been progressively worsening over the day associated with hypoxemia and generalized weakness. Denies any chest pain. Denies any fever or chills. No nausea vomiting or diarrhea. Patient has been followed by Dr. Roque. Associated with cough with mucoid expectoration. Shortness of breath worse with minimal exertion Allergies No Known Allergies Allergy (Unverified 03/27/24 07:48) Home medications list reviewed: Yes Home Medications: Atorvastatin Calcium 40 mg PO DAILY 03/27/24 Donepezil HCl 10 mg PO BEDTIME 03/27/24 Levothyroxine [Synthroid] 200 mcg PO [id number] 03/27/24 Memantine HCl 10 mg PO BID* 03/27/24 Oxybutynin Chloride [Oxybutynin Chloride ER] 10 mg PO DAILY 03/27/24 Pantoprazole [Protonix Tab] 40 mg PO DAILY 03/27/24 Quetiapine Fumarate [Seroquel] 25 mg PO BID* 03/27/24 Sertraline [Zoloft*] 100 mg PO DAILY 03/27/24 Tamsulosin [Flomax*] 0.4 mg PO BID 03/27/24 Trazodone [Desyrel] 50 mg PO PRN PRN 03/27/24 - Past Medical/Surgical History Past Medical History: Reviewed- Non-Contributory Past Surgical History: Reviewed- Non-Contributory - Family History Family History: Reviewed- Non-Contributory - Social History Smoking Status: Former smoker Review of Systems 10-point ROS is otherwise unremarkable Physical Examination - Vital Signs Temperature: 97.8 F Blood Pressure: 118/76 Pulse: 82 Respirations: 20 Pulse Ox (%): 94 - Physical Exam General: Alert, Oriented x3, Mild distress HEENT: Atraumatic, Normocephalic Neck: Supple, 2+ carotid pulse no bruit Respiratory: Diminished, Crackles/rales Cardiovascular: Normal pulses, Regular rate/rhythm, Normal S1 S2 Capillary refill: <2 Seconds Gastrointestinal: Soft and benign, W/out hepatosplenomegaly Musculoskeletal: No clubbing, No swelling Integumentary: No rashes, No breakdown Neurological: Normal speech, Normal strength at 5/5 x4 extr Lymphatics: No axilla or inguinal lymphadenopathy - Studies Laboratory Data (last 24 hrs) 03/27/24 03/27/24 03/27/24 01:24 01:24 01:24 WBC 11.00 H Hgb 8.5 L Hct 26.5 L Plt Count 358 PT 13.1 H INR 1.18 APTT 24.5 Sodium 137 Potassium 4.1 BUN 14 Creatinine 1.37 H Glucose 124 H Magnesium 1.6 Total Bilirubin 0.3 AST 21 ALT 16 Alkaline Phosphatase 56 Lipase 21 Assessment and Plan - Plan COPD exacerbation Monitor closely on telemetry Started on bronchodilators Oxygen supplementation Steroids added ABG findings noted Chest x-ray findings noted Pulmonology consult Atypical pneumonitis Started on Zithromax and Rocephin Will obtain cultures Monitor closely History of asbestosis Followed by Dr. Roque GI/DVT prophylaxis Advanced directive full code Discharge Plan: Home Plan to discharge in: Greater than 2 days - Advance Directives Does patient have a Living Will: No Does patient have a Durable POA for Healthcare: No - Code Status/Comfort Care Code Status: Full Code Time Spent Managing Pts Care (In Minutes): 48
[2024-03-27] MEDS ORDERED: ACETAMINOPHEN 325 MG TABLET PO PRN (05:41)
[2024-03-27] MEDS ORDERED: ONDANSETRON 4 MG/2 ML VIAL IV PRN (05:41)
[2024-03-27] MEDS ORDERED: guaiFENesin 100 MG/5 ML UCUP PO PRN (05:44)
[2024-03-27 05:59] VITALS: BMI 35.9
[2024-03-27] MEDS: ALBUTEROL 2.5 MG/3 ML NEB SOL NEB SCH (07:30)
[2024-03-27] MEDS: IPRATROPIUM BROM 0.5MG/2.5ML NEB SCH (07:30)
[2024-03-27] MEDS: VANCOMYCIN 2 GM in NA CHLORIDE 0.9% 500 ML IVPB ONE (08:00)
[2024-03-27] MEDS: levETIRAcetam 500 MG TAB PO SCH (09:00)
[2024-03-27] MEDS ORDERED: CEFTRIAXONE 1000 MG/VIAL ONE (09:11)
[2024-03-27] MEDS ORDERED: levETIRAcetam 500 MG TAB ONE (09:11)
[2024-03-27] MEDS ORDERED: METHYLPREDNISOLONE 40 MG INJ ONE (09:11)
[2024-03-27] MEDS: AZITHROMYCIN IV 500 MG in NA CHLORIDE 0.9% 250 ML IVPB SCH (09:30)
--- NOTE | 2024-03-27 09:35 | RAD REPORT ---
EXAM: CTAngiography Chest With Intravenous Contrast CLINICAL HISTORY: The patient is 74 years old and is Male; CHEST PAIN TECHNIQUE: Axial computed tomographic angiography images of the chest with intravenous contrast. Sagi ttal and coronal reformatted images were created and reviewed. This CT exam was performed using one or more of the fol lowing dose reduction techniques: automated exposure control, adjustment of the mA and/or kV according to patient size, and /or use of iterative reconstruction technique. MIP reconstructed images were created and reviewed. COMPARISON: No relevant prior studies available. FINDINGS: Pulmonary arteries: No PE identified. Aorta: No acute findings. No thoracic aortic aneurysm. Lungs: Moderate bilateral groundglass opacities. No focal consolidation. Pleural space: No significant effusion. No pneumothorax. Heart: Cardiomegaly. No significant pericardial fluid. Bones/joints: Vertebral Schmorl's nodes. No acute compression fracture. No acute rib fracture visuali zed. No dislocation. Soft tissues: Unremarkable. Lymph nodes: Enlarged right hilar and subcarinal lymph nodes. Enlarged left paratracheal lymph node u p to 2.2 cm. IMPRESSION: 1. No PE identified. 2. Moderate bilateral groundglass opacities, correlate clinically for atypical infection. 3. Pathologic adenopathy as above. Electronically signed by: Shannan Álvarez MD 03/27/2024 04:09 AM T Due to temporary technical issues with PACS / Fluency reporting system, reports are being signed by the in-house radiologist without review as a courtesy to ensure prompt reporting. The interpreting radiologist is fully responsible for the content of the report. Transcribed Date/Time: 03/27/2024 9:35 AM
[2024-03-27] MEDS: METHYLPREDNISOLONE 40 MG INJ IV SCH (09:58)
[2024-03-27] MEDS: ENOXAPARIN 40 MG/0.4 ML SQ SCH (09:59)
[2024-03-27] MEDS ORDERED: NA CHLORIDE 0.9% 250 ML ONE (10:22)
[2024-03-27] MEDS ORDERED: AZITHROMYCIN 500 MG INJ IVPB ONE (10:22)
--- NOTE | 2024-03-27 12:03 | P.CNS ---
Date of Consult: 03/27/24 Reason for Consult: Possible seizures Chief Complaint: SOB History of Present Illness: Patient is 74 years of age I just recently saw him in my clinic apparently whenever he walks he develops rolling eyes possible seizure happened again today came ended up here in the hospital patient has dyspnea on exertion denies any fever chills no weakness of his extremity patient has a history of pulmonary fibrosis is very debilitated from his dyspnea has significant dyspnea on mild exertion he has been progressive history of asbestosis Allergies No Known Allergies Allergy (Unverified 03/27/24 07:48) - Past Medical/Surgical History Diabetic: No -: COPD -: asbestos - Social History Place of Residence: Home Review of Systems 10-point ROS is otherwise unremarkable Physical Examination General: Alert, Oriented x3 HEENT: Atraumatic Neck: Supple Respiratory: Clear to auscultation bilaterally, Crackles/rales Cardiovascular: No edema, Regular rate/rhythm, Normal S1 S2 Laboratory Data (last 24 hrs) 03/27/24 03/27/24 03/27/24 01:24 01:24 01:24 WBC 11.00 H Hgb 8.5 L Hct 26.5 L Plt Count 358 PT 13.1 H INR 1.18 APTT 24.5 Sodium 137 Potassium 4.1 BUN 14 Creatinine 1.37 H Glucose 124 H Magnesium 1.6 Total Bilirubin 0.3 AST 21 ALT 16 Alkaline Phosphatase 56 Lipase 21 - Problems (1) Nonspecific interstitial pneumonitis Current Visit: Yes Status: Acute Plan: Patient is 74 years of age with a history of nonspecific interstitial pneumonitis, bilateral groundglass changes is very debilitated from his dyspnea arterial blood gases demonstrate significant hypoxemia Solu-Medrol to 80 mg IV twice daily possible bronchoscopy if patient is stable (2) Seizure Current Visit: Yes Status: Acute Plan: Possible seizures neurological recommendations agree with MRI and Nadiya
[2024-03-27] MEDS ORDERED: IPRATROPIUM BROM 0.5MG/2.5ML ONE (13:53)
[2024-03-27] MEDS: METHYLPREDNISOLONE 125 MG INJ IV SCH (16:28)
--- NOTE | 2024-03-27 16:56 | EKG ---
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
--- NOTE | 2024-03-27 18:24 | P.PN ---
Date of Service: 03/27/24 Patient seen and examined. Patient is complaining of shortness of breath. He is requiring supplemental Oxygen by nasal canula. Patient seen and evaluated by pulmonary Dr. Roque who reported he witnessed patient having a seizure episode in the office. COPD exacerbation Pulmonary fibrosis Seizures Plan: Scheduled bronchodilators IV steroid Start oral Keppra EEG MRI of the brain epilepsy protocol. Wean oxygen as tolerated.
[2024-03-27] MEDS: PNEUMOCOCCAL VACCINE 0.5 ML IMVAC ONE (21:24)
--- NOTE | 2024-03-27 22:07 | RAD REPORT ---
EXAM: Brain W/Wo Cont HISTORY: [facility] epilepsy protocol COMPARISON: None TECHNIQUE: Multiplanar multisequence MR images were obtained of the brain before and after intravenou s administration of 20mL MultiHance. FINDINGS: Mild periventricular and deep white matter T2 hyperintensities, nonspecific, but suggestive of chroni c small vessel ischemic changes. Mild symmetric volume loss along the hippocampal head and body bilaterally, without discrete signal abnormality. No evidence of an acute territorial infarct or other restricted diffusion. No abnormal enhancement or mass. No hydrocephalus. Mild prominence of the ventricular caliber, with some prominence of the sulci espec ially the sylvian fissures and the frontal and anterior parietal sulci. Crowding of the gyri near the vertex. Left high frontal parasagittal 1.5 x 1.4 cm ovoid region of CSF accumulation, May represent a promine nt sulcus or small arachnoid cyst. No extra-axial fluid collection or intracranial hemorrhage. Flow voids along the major arterial structures and major dural venous sinuses are preserved. Corpus callosum, pituitary, and craniocervical junction are within normal limits. The calvarium and overlying soft tissues are unremarkable. The paranasal sinuses show scattered mild inflammatory thickening mastoid air cells are well aerated. IMPRESSION: No evidence of acute intracranial abnormality. No abnormal enhancement or mass effect. Prominence of the ventricles, somewhat disproportionate to the degree of sulci prominence, with crowd ing of the gyri near the vertex. The findings may relate to central predominant volume loss versus sequelae of normal pressure hydrocephalus. Please correlate clinically. Neuro degenerative disorders should also be considered. Mild periventricular and deep white matter signal abnormalities, may suggest chronic small vessel isc hemic changes.
[2024-03-28 05:54] LABS: Albumin 2.6 g/dL (3.4-5.0); Albumin/Globulin Ratio 0.7 (1.1-1.8); Anion Gap 9.5 mEq/L (5.0-15.0); Bilirubin Total 0.2 mg/dL (0.2-1.0); Globulin 3.8 g/dL (2.3-3.5); Magnesium 2.1 mg/dL (1.6-2.4); Phosphorus 3.8 mg/dL (2.5-4.9); Potassium 4.5 mEq/L (3.5-5.1); Protein, Total 6.4 g/dL (6.4-8.2)
[2024-03-28 06:17] LABS: Absolute Basophils 0.1 K/uL (0-0.5); Absolute Lymphocytes (CBC) 0.5 K/uL (0.7-4.9); Absolute Monocytes 0.4 K/uL (0.1-1.3); Absolute Neutrophil 17.4 K/uL (1.8-8.0); Basophils % 0.6 % (0-1.3); Hematocrit 26.4 % (39.6-49.0); Hemoglobin 8.3 g/dL (13.6-17.9); Lymphocytes % 2.6 % (15.3-44.8); MCH 30.2 pg (27.0-35.0); MCHC 31.6 g/dL (32.0-36.0); MCV 95.3 fL (80-100); MPV 7.5 fL (7.6-11.3); Monocytes % 2.1 % (3.3-12.3); Neutrophils % 94.7 % (41.7-73.7); Platelets 378 thou/uL (152-406); RBC Red Blood Cell Count 2.77 M/uL (4.33-5.43)
[2024-03-28] MEDS ORDERED: CEFTRIAXONE 1,000 MG in NA CHLORIDE 0.9% 50 ML IVPB SCH (09:00)
[2024-03-28 09:48] LABS: Anisocytosis 1+; Blood Morphology Comment NOTED (NOT SEEN); Hypochromasia 1+; Platelet Estimate ADEQ; Polychromasia 1+; White Blood Cell Scan OK (OK)
[2024-03-28] MEDS: TAMSULOSIN 0.4 MG SR CAP PO SCH (09:56)
[2024-03-28] MEDS: QUETIAPINE 25 MG TAB PO SCH (09:56)
[2024-03-28] MEDS: oxyBUTYnin chloride 5 MG TAB PO SCH (09:56)
[2024-03-28] MEDS: SERTRALINE HCL 100 MG TAB PO SCH (09:57)
--- NOTE | 2024-03-28 11:30 | P.PN ---
Subjective Date of Service: 03/28/24 Chief Complaint: Nonspecific interstitial pneumonitis possible seizure Subjective: Improving (Is improving he is doing much better) Review of Systems General: Weakness Respiratory: Shortness of Breath Physical Examination - Vital Signs Temperature: 97.8 F Blood Pressure: 135/65 Pulse: 68 Respirations: 16 Pulse Ox (%): 97 - Physical Exam General: Alert, Oriented x3 Respiratory: Crackles/rales Cardiovascular: No edema, Regular rate/rhythm, Normal S1 S2 Gastrointestinal: Normal bowel sounds Assessment And Plan - Current Problems (Diagnosis) (1) Nonspecific interstitial pneumonitis Current Visit: Yes Status: Acute Plan: Patient has nonspecific pulmonary pneumonitis with an exacerbation continue with high doses of Solu-Medrol for now awaiting physical therapy (2) Seizure Current Visit: Yes Status: Acute Plan: MRI shows normal pressure hydrocephalus awaiting neurology consult Discharge Plan: Home Plan to discharge in: 24 Hours
--- NOTE | 2024-03-28 17:41 | P.PN ---
Subjective Date of Service: 03/28/24 Chief Complaint: Nonspecific interstitial pneumonitis possible seizure Patient reports improvement in shortness of breath. He desaturated to 63% with ambulation during therapy on 6 L of oxygen by nasal cannula. Patient quickly recovered. Patient denies any unsteady gait or any incontinence. Physical Examination - Vital Signs Temperature: 98 F Blood Pressure: 117/59 Pulse: 89 Respirations: 18 Pulse Ox (%): 87 Assessment And Plan - Plan Physical examination General: Alert and oriented x3, NAD, HEENT: Conjunctiva not pale, anicteric sclera, oxygen by nasal cannula. Neck: Supple, no elevated JVD Heart: Heart sounds 1 and 2 normal, regular rhythm, normal rate, no pedal edema Lungs: Mild bilateral crackles, diminished breath sounds bilaterally, no rhonchi. Abdomen: Soft, nondistended, nontender, normal bowel sounds. Extremities: No tenderness, no deformity Skin: Normal skin turgor, no rash, no nodules or ulcers. Neuro: No focal motor deficit. Normal speech. Psychiatry: Normal mood, no agitation. Assessment and plan COPD exacerbation Interstitial pneumonitis History of pulmonary asbestosis Patient's of the following 5 to 6 L of oxygen by the second. He desaturated with ambulation on oxygen during therapy today. Pulmonary input appreciated. Continue IV steroid. Scheduled bronchodilators. Incentive spirometry. Titrate oxygen. Seizures Patient reported to have witnessed seizures in the pulmonary office. Case discussed with neurology Dr. Siegel. Patient started on oral Keppra. MRI of the brain demonstrated dilated ventricles. Patient has a history of dementia but no incontinence and no ataxic gait to diagnose normal pressure hydrocephalus. EEG is pending. DVT prophylaxis: Lovenox Advanced directive: full code
[2024-03-29 05:15] LABS: Absolute Lymphocytes (CBC) 0.5 K/uL (0.7-4.9); Absolute Monocytes 0.5 K/uL (0.1-1.3); Absolute Neutrophil 16.2 K/uL (1.8-8.0); Basophils % 0.1 % (0-1.3); Hemoglobin 8.3 g/dL (13.6-17.9); Lymphocytes % 2.7 % (15.3-44.8); MCHC 33.3 g/dL (32.0-36.0); MCV 93.1 fL (80-100); MPV 7.4 fL (7.6-11.3); Monocytes % 2.9 % (3.3-12.3); Nucleated Red Blood Cells % 0.1 % (0-0); Platelets 409 thou/uL (152-406); RBC Red Blood Cell Count 2.69 M/uL (4.33-5.43); Red Cell Distribution Width 14.9 % (12.1-15.2)
[2024-03-29 05:16] LABS: Neutrophils % 94.3 % (41.7-73.7)
[2024-03-29 05:30] LABS: Anion Gap 7.8 mEq/L (5.0-15.0); Potassium 4.8 mEq/L (3.5-5.1)
[2024-03-29] MEDS: LEVOTHYROXINE SOD 0.1 MG TAB PO SCH (05:57)
--- NOTE | 2024-03-29 09:31 | P.DS ---
Admission Date: 03/27/24 Discharge Date: 04/02/24 Disposition: ROUTINE DISCHARGE Discharge Condition: FAIR Reason for Admission: Nonspecific interstitial pneumonitis possible seizure Brief History of Present Illness: 74-year-old male with past medical history of asbestosis and COPD, on oxygen at home 5 liters by nasal cannula [id number] came with shortness of breath which has been worsening over the last 2 days and has been progressively worsening over the day associated with hypoxemia and generalized weakness. Denies any chest pain. Denies any fever or chills. No nausea vomiting or diarrhea. Patient has been followed by Dr. Roque. Associated with cough with mucoid expectoration. Shortness of breath worse with minimal exertion Hospital Course: Patient admitted to the medical floor and the following medical problems addressed: Assessment and plan COPD exacerbation Interstitial pneumonitis History of pulmonary asbestosis Patient uses 5 to 6 L of oxygen by nasal cannula at baseline. Patient oxygen requirement was variable but mostly above baseline 6 to 10L His functional status is severely limited by his shortness of breath. Patient stated he depends on a wheelchair for mobility around the house Pulmonary Dr. Whitley evaluated patient and assisted with management Home NIV and 10 L flow oxygen concentrator ordered which has been delivered Patient treated with IV methylprednisolone and transition to oral prednisone. He is prescribed oral prednisone discharge There was not much improvement with a trial of IV Lasix. Patient treated with scheduled bronchodilators. Incentive spirometry. Status post 1 unit blood transfusion. Seizures Reported witnessed seizures in the pulmonary office. Case discussed with neurology Dr. Siegel. Patient started oral Keppra per Dr. Siegel recommendation. MRI of the brain demonstrated dilated ventricles. Patient has a history of dementia but no incontinence and no ataxic gait to diagnose normal pressure hydrocephalus. EEG reported as normal. No seizures since admission. Follow-up with neurology as outpatient. Symptomatic anemia Hemoglobin dropped to 7.9. No evidence of active bleeding. Status post 1 unit PRBC transfusion for symptomatic anemia, posttransfusion hemoglobin is stable around 9. Vital Signs/Physical Exam: Temp Pulse Resp BP Pulse Ox 97.5 F 76 23 H 128/60 95 03/29/24 04:00 03/29/24 04:00 03/29/24 04:00 03/29/24 04:00 03/29/24 04:00 General: Alert, In no apparent distress, Oriented x3 HEENT: Mucous membr. moist/pink, Sclerae nonicteric Neck: Supple, JVD not distended Respiratory: Clear to auscultation bilaterally, Diminished Cardiovascular: Regular rate/rhythm, Normal S1 S2 Gastrointestinal: Soft and benign, Non-distended, No tenderness Musculoskeletal: No swelling Integumentary: No rashes, No erythema Neurological: Normal speech, Normal strength at 5/5 x4 extr Laboratory Data at Discharge: WBC 17.20 thou/uL (4.3-10.9) H 03/29/24 04:52 Hgb 8.3 g/dL (13.6-17.9) L 03/29/24 04:52 Hct 25.0 % (39.6-49.0) L 03/29/24 04:52 Plt Count 409 thou/uL (152-406) H 03/29/24 04:52 PT 13.1 SECONDS (9.4-12.5) H 03/27/24 01:24 INR 1.18 03/27/24 01:24 APTT 24.5 SECONDS (24.3-36.9) 03/27/24 01:24 Sodium 136 mEq/L (136-145) 03/29/24 04:52 Potassium 4.8 mEq/L (3.5-5.1) 03/29/24 04:52 BUN 25 mg/dL (7-18) H 03/29/24 04:52 Creatinine 1.20 mg/dL (0.70-1.30) 03/29/24 04:52 Glucose 150 mg/dL (74-106) H 03/29/24 04:52 Phosphorus 3.8 mg/dL (2.5-4.9) 03/28/24 05:18 Magnesium 2.1 mg/dL (1.6-2.4) 03/28/24 05:18 Total Bilirubin 0.2 mg/dL (0.2-1.0) 03/28/24 05:18 AST 20 U/L (15-37) 03/28/24 05:18 ALT 16 U/L (16-61) 03/28/24 05:18 Alkaline Phosphatase 61 U/L (45-117) 03/28/24 05:18 Lipase 21 U/L (13-75) 03/27/24 01:24 Home Medications: Atorvastatin Calcium 40 mg PO DAILY 03/27/24 Donepezil HCl 10 mg PO BEDTIME 03/27/24 Levothyroxine [Synthroid*] 200 mcg PO [id number] 03/27/24 Memantine HCl 10 mg PO BID* 03/27/24 Oxybutynin Chloride [Oxybutynin Chloride ER] 10 mg PO DAILY 03/27/24 Pantoprazole [Protonix Tab*] 40 mg PO DAILY 03/27/24 Quetiapine Fumarate [Seroquel] 25 mg PO BID* 03/27/24 Sertraline [Zoloft*] 100 mg PO DAILY 03/27/24 Tamsulosin [Flomax*] 0.4 mg PO BID 03/27/24 Trazodone [Desyrel*] 50 mg PO PRN PRN 03/27/24 levETIRAcetam [Keppra*] 500 mg PO BID #60 tab 03/29/24 predniSONE [Prednisone*] 20 mg PO BID #20 tab 04/02/24 New Medications: levETIRAcetam [Keppra*] 500 mg PO BID #60 tab predniSONE [Prednisone*] 20 mg PO BID #20 tab Physician Discharge Instructions: . Diet: AHA Activity: Fall precautions Followup: Nimo Marino MD [Primary Care Provider] - 1-2 Weeks Milton Whitley MD [ACTIVE - CAN ADMIT] - 1-2 Weeks Lee Siegel MD [ASSOCIATE-ACTIVE - CAN ADMIT] - 1-2 Weeks Time spent managing pt's care (in minutes): 39
--- NOTE | 2024-03-29 12:32 | P.PN ---
Subjective Date of Service: 03/30/24 Chief Complaint: Nonspecific interstitial pneumonitis possible seizure Patient's condition is stable he feels better although he is experiencing significant desaturation on mild exertion even sitting up his sats dropped to below 80 degree of movement caused him to desaturate significantly he is currently on 5 L of nasal cannula oxygen Review of Systems General: Weakness Respiratory: Shortness of Breath Physical Examination - Vital Signs Temperature: 97.4 F Blood Pressure: 105/53 Pulse: 86 Respirations: 16 Pulse Ox (%): 90 - Physical Exam General: Alert, Oriented x3 Cardiovascular: No edema, Normal S1 S2 Gastrointestinal: Normal bowel sounds, Soft and benign Assessment And Plan - Current Problems (Diagnosis) (1) Nonspecific interstitial pneumonitis Current Visit: Yes Status: Acute Plan: 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 experiencing significant oxygen desaturation currently is on 5 L of nasal cannula oxygen is around 92% any level of activity even sitting up in the bed causes a significant drop in his O2 contacted [employer] company for a possible noninvasive ventilator he will need up to 10 L of oxygen set up at home unfortunately ROCKETHOME is no longer available change patient to oral prednisone (2) Seizure Current Visit: Yes Status: Acute Plan: MRI shows normal pressure hydrocephalus awaiting neurology consult (3) Respiratory failure Current Visit: Yes Status: Acute Plan: Ordering NIV with AVAPS-AE as opposed to BIPAP S/T or BIPAP-AVAPS as patient requires expansive flow ranges to satiate shortness of breath,the option to use use for exertional distress with a secondary exertional mode,and breath synchrony technology to prevent additional air trapping. Duw to patients advanced disease ventilatory defect, BIPAP and RAD devices are insufficient. Futhermore, HAN is not a contributing factor to this patients chronic respiratory faily Qualifiers: Chronicity: acute on chronic
[2024-03-29 15:45] LABS: Blood O2 Saturation 83.4 % (92-98.5)
[2024-03-29 15:46] LABS: Arterial Blood Carboxyhemoglob 1.4 % (0-1.5); Blood Gas Oxyhemoglobin 81.4 % (94-97); Blood Gas THB 13.4 g/dl (12-18)
--- NOTE | 2024-03-29 16:42 | P.PN ---
Subjective Date of Service: 03/29/24 Chief Complaint: Nonspecific interstitial pneumonitis possible seizure Patient denies any new complain. His oxygen saturation is stable on baseline 5 L oxygen by nasal cannula. Patient denies any chest pain. Physical Examination - Vital Signs Temperature: 97.4 F Blood Pressure: 105/53 Pulse: 86 Respirations: 16 Pulse Ox (%): 90 Assessment And Plan - Plan Physical examination General: Alert and oriented x3, NAD, HEENT: Oxygen by nasal cannula. Neck: Supple, no elevated JVD Heart: Heart sounds 1 and 2 normal, regular rhythm, normal rate, no pedal edema Lungs: Mild bilateral crackles, diminished breath sounds bilaterally, no rhonchi. Abdomen: Soft, nondistended, nontender, normal bowel sounds. Extremities: No tenderness, no deformity Skin: Normal skin turgor, no rash. Neuro: No focal motor deficit. Normal speech. Psychiatry: Normal mood, no agitation. Assessment and plan COPD exacerbation Interstitial pneumonitis History of pulmonary asbestosis Patient uses 5 to 6 L of oxygen by nasal cannula at baseline His functional status is severely limited by his shortness of breath. Patient stated he depends on a wheelchair for mobility around the house Pulmonary Dr. Whitley is following and recommending NIV at home. Arterial blood gas on room air shows severe hypoxemia. IV steroid transition to oral prednisone. Scheduled bronchodilators. Incentive spirometry. Titrate oxygen. Seizures Reported witnessed seizures in the pulmonary office. Case discussed with neurology Dr. Siegel. Patient started on oral Keppra per Dr. Siegel recommendation. MRI of the brain demonstrated dilated ventricles. Patient has a history of dementia but no incontinence and no ataxic gait to diagnose normal pressure hydrocephalus. EEG is is done and the read is pending. No seizures since admission. DVT prophylaxis: Lovenox Advanced directive: full code
[2024-03-29] MEDS: ALBUTEROL 2.5 MG/3 ML NEB SOL NEB PRN (20:17)
[2024-03-29] MEDS: DONEPEZIL HCL 5 MG TAB PO SCH (20:51)
[2024-03-29] MEDS: predniSONE 20 MG TAB PO SCH (20:52)
[2024-03-29] MEDS: TRAZODONE 50 MG TABLET PO PRN (20:55)
[2024-03-29] MEDS ORDERED: HOME MED 1 EA UNK (Donepezil Hcl [Donepezil Hcl] 10 MG Tablet) PO SCH (21:00)
[2024-03-30 05:05] LABS: Absolute Lymphocytes (CBC) 0.6 K/uL (0.7-4.9); Absolute Monocytes 0.9 K/uL (0.1-1.3); Absolute Neutrophil 12.1 K/uL (1.8-8.0); Basophils % 0.1 % (0-1.3); Hematocrit 24.5 % (39.6-49.0); Hemoglobin 8.1 g/dL (13.6-17.9); Lymphocytes % 4.3 % (15.3-44.8); MCH 30.6 pg (27.0-35.0); MCHC 32.9 g/dL (32.0-36.0); MPV 7.3 fL (7.6-11.3); Monocytes % 6.8 % (3.3-12.3); Neutrophils % 88.8 % (41.7-73.7); Nucleated Red Blood Cells % 0.1 % (0-0); Platelets 374 thou/uL (152-406); RBC Red Blood Cell Count 2.64 M/uL (4.33-5.43); Red Cell Distribution Width 14.9 % (12.1-15.2)
[2024-03-30 05:10] LABS: Anion Gap 6.5 mEq/L (5.0-15.0); Potassium 4.5 mEq/L (3.5-5.1)
--- NOTE | 2024-03-30 08:53 | EEG ---
CHART: [id number] TEST ID#: [id number] DATE OF STUDY: 03/28/2024 THE EEG WAS RECORDED PORTABLE IN THE PATIENT'S ROOM ON A 17 CHANNEL MACHINE. ELECTRODES WERE APPLIED IN THE USUAL MANNER USING THE INTERNATIONAL 10-20 SYSTEM. THE WAKING BACKGROUND RHYTHM IN THIS RECORD CONSISTS OF FAIRLY WELL DEVELOPED AND FAIRLY WELL ORGANIZED WAVES OF 9 HZ., MAXIMAL IN THE POSTERIOR HEAD REGIONS WHICH ATTENUATE NORMALLY WITH EYE OPENING. LOW-VOLTAGE 18-22 HZ ACTIVITY IS EXPRESSED IN THE FRONTAL REGIONS. THERE ARE NO FOCAL OR LATERALIZING FEATURES. NO EPILEPTIFORM ACTIVITY APPEARS. SLEEP OCCURRED NATURALLY. IN ADDITION NORMAL SLEEP PATTERNS ARE PRESENT. HYPERVENTILATION WAS NOT PERFORMED. PHOTIC STIMULATION PRODUCED POOR DRIVING BILATERALLY. IMPRESSION: NORMAL EEG FOR THE AGE OF THE PATIENT IN [place], DROWSINESS AND SLEEP.
[2024-03-30] MEDS: PANTOPRAZOLE 40MG TABLET PO SCH (09:23)
[2024-03-30] MEDS: MEMANTINE HCL 10 MG TABLET PO SCH (09:23)
[2024-03-30] MEDS: ATORVASTATIN 40 MG TAB PO SCH (09:24)
--- NOTE | 2024-03-30 17:12 | P.PN ---
Subjective Date of Service: 03/30/24 Chief Complaint: Nonspecific interstitial pneumonitis possible seizure Patient is requiring more oxygen to keep his SaO2 rater than 90%. He has no new complaint. Physical Examination - Vital Signs Temperature: 98.9 F Blood Pressure: 123/60 Pulse: 74 Respirations: 16 Pulse Ox (%): 90 Assessment And Plan - Plan Physical examination General: Alert and oriented x3, NAD, HEENT: Oxygen by nasal cannula. Neck: Supple, no elevated JVD Heart: Heart sounds 1 and 2 normal, regular rhythm, normal rate, no pedal edema Lungs: Mild bilateral crackles, diminished breath sounds bilaterally, no rhonchi. Abdomen: Soft, nondistended, nontender, normal bowel sounds. Extremities: No tenderness, no deformity Skin: Normal skin turgor, no rash. Neuro: No focal motor deficit. Normal speech. Psychiatry: Normal mood, no agitation. Assessment and plan COPD exacerbation Interstitial pneumonitis History of pulmonary asbestosis Patient uses 5 to 6 L of oxygen by nasal cannula at baseline His functional status is severely limited by his shortness of breath. Patient stated he depends on a wheelchair for mobility around the house Pulmonary Dr. Whitley is following and recommending NIV at home. NIV ordered pending authorization and delivery. Arterial blood gas on room air shows severe hypoxemia. Continue steroid Trial of Lasix. Scheduled bronchodilators. Incentive spirometry. Titrate oxygen. Seizures Reported witnessed seizures in the pulmonary office. Case discussed with neurology Dr. Siegel. Patient started on oral Keppra per Dr. Siegel recommendation. MRI of the brain demonstrated dilated ventricles. Patient has a history of dementia but no incontinence and no ataxic gait to diagnose normal pressure hydrocephalus. EEG reported as normal. No seizures since admission. Follow-up with neurology as outpatient. DVT prophylaxis: Lovenox Advanced directive: full code
[2024-03-30] MEDS ORDERED: NA CHLORIDE 0.9% 250 ML IV SCH (18:00)
[2024-03-31 07:04] LABS: Absolute Lymphocytes (CBC) 0.7 K/uL (0.7-4.9); Absolute Monocytes 0.9 K/uL (0.1-1.3); Basophils % 0.1 % (0-1.3); Hemoglobin 7.9 g/dL (13.6-17.9); Lymphocytes % 6.1 % (15.3-44.8); MCH 30.5 pg (27.0-35.0); MCV 92.3 fL (80-100); MPV 7.1 fL (7.6-11.3); Neutrophils % 85.8 % (41.7-73.7); Nucleated Red Blood Cells % 0.1 % (0-0); Platelets 375 thou/uL (152-406); Red Cell Distribution Width 14.9 % (12.1-15.2)
[2024-03-31 07:24] LABS: Anion Gap 9.2 mEq/L (5.0-15.0); Potassium 4.2 mEq/L (3.5-5.1)
[2024-03-31] MEDS ORDERED: NA CHLORIDE 0.9% 250 ML IV SCH (09:00)
[2024-03-31] MEDS: IPRATROPIUM BROM 0.5MG/2.5ML NEB SCH (10:03)
--- NOTE | 2024-03-31 12:52 | P.PN ---
Subjective Date of Service: 03/31/24 Chief Complaint: Nonspecific interstitial pneumonitis possible seizure Patient reports shortness of breath, he just came off the BiPAP during my examination. Physical Examination - Vital Signs Temperature: 97.2 F Blood Pressure: 116/58 Pulse: 80 Respirations: 16 Pulse Ox (%): 94 Assessment And Plan - Plan Physical examination General: Alert and oriented x3, moderate respiratory distress. HEENT: Oxygen by nasal cannula. Neck: Supple, no elevated JVD Heart: Heart sounds 1 and 2 normal, regular rhythm, normal rate, no pedal edema Lungs: Mild bilateral crackles, diffuse wheezes, diminished breath sounds bilaterally. Abdomen: Soft, nondistended, nontender, normal bowel sounds. Extremities: No tenderness, no deformity Skin: Normal skin turgor, no rash. Neuro: No focal motor deficit. Normal speech. Psychiatry: Normal mood, no agitation. Assessment and plan COPD exacerbation Interstitial pneumonitis History of pulmonary asbestosis Patient uses 5 to 6 L of oxygen by nasal cannula at baseline His functional status is severely limited by his shortness of breath. Patient stated he depends on a wheelchair for mobility around the house Pulmonary Dr. Whitley is following. Home NIV ordered pending authorization and delivery. Arterial blood gas on room air shows severe hypoxemia. Continue steroid Not much improvement with IV Lasix. Scheduled bronchodilators. Incentive spirometry. Titrate oxygen. BiPAP as needed Transfuse 1 unit PRBC for symptomatic anemia. Seizures Reported witnessed seizures in the pulmonary office. Case discussed with neurology Dr. Siegel. Patient started on oral Keppra per Dr. Siegel recommendation. MRI of the brain demonstrated dilated ventricles. Patient has a history of dementia but no incontinence and no ataxic gait to diagnose normal pressure hydrocephalus. EEG reported as normal. No seizures since admission. Follow-up with neurology as outpatient. Symptomatic anemia Hemoglobin dropped to 7.9. No evidence of active bleeding. Transfuse 1 unit PRBC to a target hemoglobin of greater than 8. DVT prophylaxis: Lovenox Advanced directive: full code
[2024-03-31] MEDS: ALBUTEROL 2.5 MG/3 ML NEB SOL NEB SCH (13:50)
[2024-03-31 14:27] LABS: Hematocrit 27.9 % (39.6-49.0)
[2024-03-31] MEDS: FUROSEMIDE 40 MG/4 ML VIAL IV SCH (16:37)
[2024-03-31] MEDS: ALPRAZOLAM 0.25 MG TABLET PO SCH (21:19)
[2024-04-01 07:51] LABS: Absolute Lymphocytes (CBC) 0.7 K/uL (0.7-4.9); Absolute Monocytes 0.6 K/uL (0.1-1.3); Absolute Neutrophil 8.5 K/uL (1.8-8.0); Basophils % 0.4 % (0-1.3); Eosinophils % 0.2 % (0-4.4); Hematocrit 27.8 % (39.6-49.0); Hemoglobin 9.1 g/dL (13.6-17.9); Lymphocytes % 6.6 % (15.3-44.8); MCH 29.8 pg (27.0-35.0); MCHC 32.7 g/dL (32.0-36.0); MCV 91.2 fL (80-100); MPV 7.9 fL (7.6-11.3); Monocytes % 6.2 % (3.3-12.3); Neutrophils % 86.6 % (41.7-73.7); Nucleated Red Blood Cells % 0.1 % (0-0); Platelets 321 thou/uL (152-406); RBC Red Blood Cell Count 3.05 M/uL (4.33-5.43); Red Cell Distribution Width 15.5 % (12.1-15.2)
[2024-04-01 08:16] LABS: Albumin 2.4 g/dL (3.4-5.0); Albumin/Globulin Ratio 0.6 (1.1-1.8); Anion Gap 10.1 mEq/L (5.0-15.0); Bilirubin Total 0.6 mg/dL (0.2-1.0); Globulin 3.7 g/dL (2.3-3.5); Potassium 4.1 mEq/L (3.5-5.1); Protein, Total 6.1 g/dL (6.4-8.2)
[2024-04-01 09:12] LABS: Differential Total Cells Count 100; Lymphocytes 9 % (15-42); Monocytes 6 % (0-10); Platelet Estimate ADEQ; Segmented Neutrophils 85 % (40-80)
[2024-04-01 09:13] LABS: Blood Morphology Comment NOT SEEN (NOT SEEN)
--- NOTE | 2024-04-01 14:59 | P.PN ---
Subjective Date of Service: 04/01/24 Chief Complaint: Nonspecific interstitial pneumonitis possible seizure Patient states he feels better after the blood transfusion. He used home BiPAP machine overnight and tolerated it. He is still requiring more oxygen above his baseline. Physical Examination - Vital Signs Temperature: 98.7 F Blood Pressure: 115/55 Pulse: 75 Respirations: 22 Pulse Ox (%): 90 - Studies Microbiology Data (last 24 hrs): 03/27/24 02:54 Blood - Blood Aerobic Blood Culture - Final No growth in 5 days. 03/27/24 02:54 Blood - Blood Anaerobic Blood Culture - Final No growth in 5 days. 03/27/24 01:24 Blood - Blood Aerobic Blood Culture - Final No growth in 5 days. 03/27/24 01:24 Blood - Blood Anaerobic Blood Culture - Final No growth in 5 days. Assessment And Plan - Plan Physical examination General: Alert and oriented x3, moderate respiratory distress. HEENT: Oxygen by nasal cannula. Neck: No elevated JVD Heart: Heart sounds 1 and 2 normal, regular rhythm, normal rate, no pedal edema Lungs: Mild bilateral crackles, mild scattered crackles, diminished breath sounds bilaterally. Abdomen: Soft, nondistended, nontender, normal bowel sounds. Extremities: No tenderness, no deformity Skin: Normal skin turgor, no rash. Neuro: No focal motor deficit. Normal speech. Psychiatry: Normal mood, no agitation. Assessment and plan COPD exacerbation Interstitial pneumonitis History of pulmonary asbestosis Patient uses 5 to 6 L of oxygen by nasal cannula at baseline. Patient oxygen requirement has been variable but mostly above baseline. His functional status is severely limited by his shortness of breath. Patient stated he depends on a wheelchair for mobility around the house Pulmonary Dr. Whitley is following. Home NIV delivered overnight. Patient minimally had capacity oxygen apparatus that can deliver up to 10 L/min by nasal cannula. Continue p.o. prednisone. Not much improvement with IV Lasix. Scheduled bronchodilators. Incentive spirometry. Titrate oxygen. BiPAP as needed Status post 1 unit blood transfusion. Seizures Reported witnessed seizures in the pulmonary office. Case discussed with neurology Dr. Siegel. Continue oral Keppra per Dr. Siegel recommendation. MRI of the brain demonstrated dilated ventricles. Patient has a history of dementia but no incontinence and no ataxic gait to diagnose normal pressure hydrocephalus. EEG reported as normal. No seizures since admission. Follow-up with neurology as outpatient. Symptomatic anemia Hemoglobin dropped to 7.9. No evidence of active bleeding. Status post 1 unit PRBC transfusion, posttransfusion hemoglobin is up to 9. DVT prophylaxis: Lovenox Advanced directive: full code
[2024-04-02 05:21] LABS: Absolute Eosinophils 0.1 K/uL (0-0.5); Absolute Lymphocytes (CBC) 0.5 K/uL (0.7-4.9); Absolute Monocytes 0.6 K/uL (0.1-1.3); Basophils % 0.3 % (0-1.3); Eosinophils % 0.8 % (0-4.4); Hematocrit 27.7 % (39.6-49.0); Hemoglobin 9.2 g/dL (13.6-17.9); Lymphocytes % 3.8 % (15.3-44.8); MCH 30.2 pg (27.0-35.0); MCHC 33.3 g/dL (32.0-36.0); MCV 90.7 fL (80-100); MPV 7.6 fL (7.6-11.3); Monocytes % 4.6 % (3.3-12.3); Platelets 386 thou/uL (152-406); RBC Red Blood Cell Count 3.05 M/uL (4.33-5.43); Red Cell Distribution Width 15.4 % (12.1-15.2)
[2024-04-02 05:23] LABS: Neutrophils % 90.5 % (41.7-73.7)
[2024-04-02 05:38] LABS: Anion Gap 9.3 mEq/L (5.0-15.0); Potassium 4.3 mEq/L (3.5-5.1)
[2024-04-02 12:11] VITALS: O2SAT 96
[2024-04-02 12:18] VITALS: BP 126/59; TEMP 97.1
== END 2024-04-02 15:27 | disposition home or self-care (01) | DRG 196 ==
LOC: ER 00:40 → ERHOLD 05:41 → 2ND 16:23
PROVIDERS: ADMIT Family Medicine; ATTEND Internal Medicine
PROC: 4A033R1 Measurement of Arterial Saturation, Peripheral, Percutaneous Approach (ICD-10-PCS; principal; 2024-03-28)
PROC: 5A09557 Assistance with Respiratory Ventilation, Greater than 96 Consecutive Hours, Continuous Positive Airway Pressure (ICD-10-PCS; 2024-03-28)
PROC: 30233N1 Transfusion of Nonautologous Red Blood Cells into Peripheral Vein, Percutaneous Approach (ICD-10-PCS; 2024-03-31)
DX: J84.89 Other specified interstitial pulmonary diseases (principal); J96.21 Acute and chronic respiratory failure with hypoxia; J44.1 Chronic obstructive pulmonary disease with (acute) exacerbation; R56.9 Unspecified convulsions; J61 Pneumoconiosis due to asbestos and other mineral fibers; D64.9 Anemia, unspecified; F03.90 Unspecified dementia, unspecified severity, without behavioral disturbance, psychotic disturbance, mood disturbance, and anxiety; Z23 Encounter for immunization; Z99.81 Dependence on supplemental oxygen; Z79.52 Long term (current) use of systemic steroids; Z79.890 Hormone replacement therapy; Z79.899 Other long term (current) drug therapy; Z87.891 Personal history of nicotine dependence
CPT/HCPCS: 36415; 36430; 36600; 70553; 71275; 80048; 80053; 80076; 82550; 82805; 83690; 83735; 83880; 84100; 84484; 85014; 85018; 85025; 85379; 85610; 85730; 86850; 86900; 86901; 86920; 87040; 90471; 90732; 93005; 94640; 94660; 94760; 95819; 96365; 96366; 96367; 96375; 97161; 97530; 99285; A9577; J0696; J1650; J1940; J2543; J2919; J7040; J7050; J7512; J7613; J7644; P9016; Q9967

== ENCOUNTER 2024-04-04 13:41 | Inpatient (IN) | payer OTHER ==
--- OUTSIDE RECORDS SUMMARY | 2024-04-04 13:44 | XMS REPORT | Continuity of Care Document ---
Author Name Unknown Address [address] [facility] [address] [place] [address] [facility] Address [address] [facility] [address] [place] [address] Care Team Providers Care Filter Press Tender Name Role Phone MADAN FRIAS Primary Care Physician Unavailab JESSY Archer Attending Clinician Unavail able LONI FISHMAN Attending Clinician Unavailable CALCIUM SCORE SCAN, SELF REQUES Attending Clinic berna Unavailable NEHEMIAH PATEL RACE CAR MECHANIC Attending Clinician Unavailable MADAN FRIAS Attending Clinician Unavailable LONI FISHMAN Attending Clinician Unavailable ADAM VAZQUEZ APN Attending Clinician LONI Rosa Admitting Clinician Unavailable Payers Payer Name Policy Type Policy Number Effective Date Expirati on Date Source 2 M [id number] Allergies, Adverse Reactions, Alerts Allergy Name Allergy Type Status Severity Reaction(s) Onset Date Inactive Date Treating Clinician Comments Source Unable to Assess UA Active 01-18 05:57: 50 [facility] ([facility]) No Known Allergie s NA Active 01-15 10:04: 22 [facility] ([facility]) No Known Allergie s NA Active 12-23 09:06: 50 [facility] ([facility]) No Known Allergie s NA Active 12-22 09:39: 39 [facility] ([facility]) No Known Allergie s NA Active 12-22 09:39: 25 [facility] ([facility]) No Known Allergie s NA Active 12-22 09:39: 20 [facility] ([facility]) No Known Allergie s NA Active 12-22 09:38: 59 [facility] ([facility]) No Known Allergie s NA Active 12-22 09:38: 18 [facility] ([facility]) No Known Allergie s NA Active 11-25 14:47: 22 [facility] ([facility]) Medications Ordered Medication Name Filled Medication Name Start Date Stop Date Current Medication? Ordering Clinician Indication Dosage Frequency Signature (SIG) Comments Components Source nitroglycer in SL 0.4 MG SUBL nitroglycer in SL 0.4 MG SUBL 01-18 10:35: 00 01-18 10:35 :00 No .4mg medication :nitroglyc marina SL 0.4 MG SUBL|dose: 0.4 mg|route:S UBLINGUAL| frequency: ONE TIME [facility] ([facility]) metoprolol INJ 5 MG/5 ML SOLN metoprolol INJ 5 MG/5 ML SOLN 01-18 10:35: 00 01-18 10:35 :00 No 5mg medication :metoprolo l INJ 5 MG/5 ML SOLN|dose: 5.0 mg|route:I NTRAVENOUS |frequency :ONE TIME [facility] ([facility]) iopamidol-3 70 INJ 76 % SOLN iopamidol-3 70 INJ 76 % SOLN 01-18 10:19: 00 01-18 10:19 :00 No 100mL medication :iopamidol -370 INJ 76 % SOLN|dose: 100.0 mL|route:I NTRAVENOUS |frequency :ONE TIME [facility] ([facility]) NS SOLN NS SOLN 01-18 10:19: 00 01-18 10:19 :00 No 50mL medication :NS SOLN|dose: 50.0 mL|route:I NTRAVENOUS |frequency :ONE TIME [facility] ([facility]) 07/12 NS SOLN 1/2 NS SOLN 01-18 09:00: 00 01-18 15:55 :00 No 250mL medication :1/2 NS SOLN|dose: 250.0 mL|route:I NTRAVENOUS |frequency :ONE TIME [facility] ([facility]) nitroglycer in SL 0.4 MG SUBL nitroglycer in SL 0.4 MG SUBL 12-22 10:29: 00 12-22 09:38 :00 No .4mg medication :nitroglyc marina SL 0.4 MG SUBL|dose: 0.4 mg|route:S UBLINGUAL| frequency: ONE TIME [facility] ([facility]) metoprolol INJ 5 MG/5 ML SOLN metoprolol INJ 5 MG/5 ML SOLN 12-22 10:29: 00 12-22 09:38 :00 No 5mg medication :metoprolo l INJ 5 MG/5 ML SOLN|dose: 5.0 mg|route:I NTRAVENOUS |frequency :ONE TIME [facility] ([facility]) Encounters Start Date/Time End Date/Time Encounter Type Admission Type Attending [facility] Care Facility Care Department Encounter ID Source 2023-11-17 08:30:00 [id number] [facility] 2022-01-15 10:04:26 Outpatient 3 LONI FISHMAN [facility] [id number] [facility] ([facility]) 2021-12-02 14:00:00 Inpatient EL CALCIUM SCORE SCAN, SELF LUCIA MYERS [id number] [facility] 2021-11-25 14:47:25 Outpatient 3 LONI FISHMAN [id number] [facility] ([facility]) 2021-09-02 09:53:38 Outpatient LUCIA MYERS [id number] [facility] 2024-01-09 11:16:00 2024-01-09 11:16:00 [facility] [id number] [facility] 2023-12-15 07:41:00 2023-12-15 07:41:00 Outpatient JESSY [facility]ONG [facility] [id number] [facility] 2023-08-05 09:46:00 2023-08-05 09:46:00 Outpatient MADAN [facility]ORTA [facility] [id number] [facility] 2022-02-25 08:42:00 2022-02-25 08:42:00 Outpatient BURAK KYE LONI LUCIA MYERS [id number] [facility] 2022-02-01 08:30:00 2022-02-01 08:30:00 [facility] [id number] [facility] 2022-02-01 08:30:00 2022-02-01 08:30:00 Outpatient ADAM CELESTIN LUCIA MYERS [id number] [facility] 2022-01-18 20:55:00 2022-01-18 20:55:00 Outpatient Encounter [facility] [id number] 2022-01-18 15:55:00 2022-01-18 15:55:00 Outpatient 3 LONI FISHMAN [facility] [id number] [facility] ([facility]) 2022-01-18 15:55:00 2022-01-18 15:55:00 Outpatient Encounter 3 LONI FISHMAN [facility] [id number] [facility] ([facility]) 2021-12-22 14:38:00 2021-12-22 14:38:00 Outpatient Encounter [facility] [id number] 2021-12-22 09:38:00 2021-12-22 09:38:00 Outpatient Encounter [facility] [id number] [facility] 2021-12-22 09:38:00 2021-12-22 09:38:00 [facility] 3 [facility] [id number] [facility] ([facility]) 2021-11-11 13:00:00 2021-11-11 13:00:00 Outpatient BURAK ADAM VAZQUEZ [id number] [facility] 2021-09-25 13:32:00 2021-09-25 13:32:00 Outpatient BURAK ADAM VAZQUEZ [id number] [facility] 2021-09-02 09:31:00 2021-09-02 09:31:00 Outpatient BURAK LONI FISHMAN [id number] [facility] Results Test Description Test Time Test Comments Results Resul t Comments Source [facility]AT[facility]ASC[facility] 2022-01-08 1 17:32:00 [facility] : 1950 Sex: M [address] [id number] IMAGING REPORTPatient Name: NASIM RAODate of Service: [id number]: [id number] Sex: M Order #: [id number] Room: [facility]: 1950 X-Ray Number: [id number] Record Number: [id number] Hospital Number: [id number] Physician: Anthony FISHMANing Physician: CANDICE FISHMAN ANATOMY [...] JOHAN HAYES 2022-01-18 17:29:54 Creatinine [Mass/volume] in [id number] 10:16:00* Test Item Value Reference Range Interpretation Comme nts Creatinine [Mass/volume] in Blood (test code = 66544-5) 1.9 MG/DL 0.7-1.5 N ([place]) Notes Date/Time Note Provider Source 2022-01-18 17:29:[address] [address] DIAGNOSTIC IMAGING REPORT Patient Name: NASIM RAO Date of Service: 01-18-2022 Age: 71 Sex: M Order #: [id number] Room: [facility] : 1950 X-Ray Number: [id number] Hospital Number: [id number] Admitting Physician: LONI FISHMAN Ordering Physician: LONI [...] by JOHAN HAYES 2022-01-18 17:29:54 GUTIERREZ PRADO [facility] PATIENT OPEN ORDERS Code System Description Frequency Occurrences Priority [place] [id number] [facility] Coronary arteries CT angiogram and 3D reconstru ONE TIME 0 Routine January 18, 2022 3:13:00 PM [facility] KYE IVEY [id number] on January 18, 2022 9:44:00 PM [facility] SCHEDULED PROCEDURES Code System Description Status Scheduled Date Updated By Patient scheduled procedure information is not available. [facility]"
[2024-04-04] MEDS ORDERED: NA CHLORIDE 0.9% 3,000 ML ONE (13:58)
[2024-04-04] MEDS ORDERED: CEFTRIAXONE 1000 MG/VIAL ONE (13:58)
[2024-04-04] MEDS ORDERED: AZITHROMYCIN 500 MG INJ IVPB ONE (13:58)
[2024-04-04] MEDS ORDERED: NA CHLORIDE 0.9% 250 ML ONE (13:59)
[2024-04-04 14:28] LABS: PT Prothrombin Time 14.1 SECONDS (9.4-12.5); PTT, Activated Partial Thromb 27.2 SECONDS (24.3-36.9); Protime INR 1.27
[2024-04-04 14:42] LABS: Albumin 2.4 g/dL (3.4-5.0); Albumin/Globulin Ratio 0.5 (1.1-1.8); Anion Gap 10.9 mEq/L (5.0-15.0); Bilirubin Total 0.6 mg/dL (0.2-1.0); Globulin 4.6 g/dL (2.3-3.5); Potassium 3.9 mEq/L (3.5-5.1)
[2024-04-04 14:47] LABS: Absolute Lymphocytes (CBC) 0.7 K/uL (0.7-4.9); Absolute Monocytes 1.5 K/uL (0.1-1.3); Absolute Neutrophil 19.1 K/uL (1.8-8.0); Basophils % 0.1 % (0-1.3); Eosinophils % 0.1 % (0-4.4); Hematocrit 32.6 % (39.6-49.0); Hemoglobin 10.6 g/dL (13.6-17.9); Lymphocytes % 3.3 % (15.3-44.8); MCH 29.6 pg (27.0-35.0); MCHC 32.6 g/dL (32.0-36.0); MCV 90.7 fL (80-100); MPV 7.6 fL (7.6-11.3); Monocytes % 6.8 % (3.3-12.3); Neutrophils % 89.7 % (41.7-73.7); Nucleated Red Blood Cells % 0.1 % (0-0); Platelets 481 thou/uL (152-406); Red Cell Distribution Width 15.5 % (12.1-15.2)
[2024-04-04] MEDS ORDERED: NOREPINEPHRINE BITARTRATE/D5W 4 MG/250 ML KIT IV ONE (15:15)
--- NOTE | 2024-04-04 15:52 | ER ---
Nurse's Notes [facility] Name: Sami Hubbard Age: 74 yrs Sex: Male : 1950 Arrival Date: 04/04/2024 Time: 13:41 Bed 7 Private MD: Diagnosis: Severe sepsis with septic shock;Lactic Acidosis;COPD/ Chronic obstructive pulmonary disease with (acute) exacerbation;Pneumonia, unspecified organism Presentation: 04/04 13:46 Chief complaint: EMS states: they were toned out for trouble breathing x2 HRS PROCESS TECH. pt kc6 was found to have an SPO2 in the 50's while on bipap at home. pt was place on EMS CPAP and SPO2 increased to 97%. 2 albuterol treatments given en route. Coronavirus screen: At this time, the client does not indicate any symptoms associated with coronavirus-19. Ebola Screen: No symptoms or risks identified at this time. Initial Sepsis Screen: Does the patient meet any 2 criteria? RR > 20 per min. Altered Mental Status. HR > 90 bpm. Does the patient have a suspected source of infection? No. Patient's initial sepsis screen is negative. Risk Assessment: Do you want to hurt yourself or someone else? Patient reports no desire to harm self or others. Onset of symptoms was April 04, 2024. 13:46 Method Of Arrival: EMS: [facility] 13:46 Acuity: KALLI 2 kc6 Triage Assessment: 13:49 General: Appears distressed, uncomfortable, obese, well groomed, well developed, kc6 Behavior is calm, cooperative, appropriate for age. Pain: Unable to use pain scale. Does not appear to understand pain scale. EENT: No signs and/or symptoms were reported regarding the EENT system. Neuro: Level of Consciousness is awake, alert, obeys commands, Oriented to person, place, time, situation, Appropriate for age. Cardiovascular: Capillary refill < 3 seconds. Respiratory: Reports shortness of breath at rest on exertion Airway is patent Trachea midline Respiratory effort is even, labored, with retractions, using tripod position, Respiratory pattern is symmetrical, tachypnea Onset: The symptoms/episode began/occurred just prior to arrival, the patient has severe shortness of breath. GI: No signs and/or symptoms were reported involving the gastrointestinal system. : No signs and/or symptoms were reported regarding the genitourinary system. Derm: No signs and/or symptoms reported regarding the dermatologic system. Skin is intact, is healthy with good turgor, Skin is dry, Skin is dusky, Skin temperature is warm. Musculoskeletal: No signs and/or symptoms reported regarding the musculoskeletal system. Circulation, motion, and sensation intact. Capillary refill < 3 seconds, Range of motion: intact in all extremities. Historical: - Allergies: 13:54 No Known Allergies; kc6 - PMHx: 13:49 asbestos; COPD; kc6 13:53 Alzheimer's disease; Dementia; Kidney disease; Atrial fibrillation; kc6 - PSHx: 13:49 hernia; R hip surgery; ulcer repair; kc6 13:53 Appendectomy; kc6 - Immunization history:: Adult Immunizations up to date. - Infectious Disease History:: Denies. - Social history:: Smoking status: Patient/guardian denies using tobacco, the patient reports quitting approximately 40 years ago. - Code Status:: DNR and DNI. Screenin:51 [facility] ED Fall Risk Assessment (Adult) History of falling in the last 3 months, kc6 including since admission No falls in past 3 months (0 pts) Confusion or Disorientation Yes (5 pts) Intoxicated or Sedated No (0 pts) Impaired Gait Yes (1 pt) Mobility Assist Device Used Yes (1 pt) Altered Elimination No (0 pt) Score/Fall Risk Level 3 or more points = High Risk Oriented to surroundings. Abuse screen: Denies threats or abuse. Denies injuries from another. Nutritional screening: No deficits noted. Tuberculosis screening: No symptoms or risk factors identified. Assessment: 13:46 Respiratory: Breath sounds are diminished bilaterally. kc6 13:46 Cardiovascular: Rhythm is regular. kc6 14:22 Reassessment: please see triage. kc6 15:22 Reassessment: Patient appears in no apparent distress at this time. No changes from kc6 previously documented assessment. Patient and/or family updated on plan of care and expected duration. Pain level reassessed. Patient is alert, oriented x 3, equal unlabored respirations, skin warm/dry/pink. 16:22 Reassessment: Patient appears in no apparent distress at this time. No changes from kc6 previously documented assessment. Patient and/or family updated on plan of care and expected duration. Pain level reassessed. Patient is alert, oriented x 3, equal unlabored respirations, skin warm/dry/pink. 17:34 Reassessment: Patient appears in no apparent distress at this time. No changes from kc6 previously documented assessment. Patient and/or family updated on plan of care and expected duration. Pain level reassessed. Patient is alert, oriented x 3, equal unlabored respirations, skin warm/dry/pink. NURSE TO NURSE REPORT GIVEN TO STEVEN RIVERA. Vital Signs: 13:45 BP 108 / 64; Pulse 101; Resp 20 S; Pulse Ox 99% on BiPAP; kc6 13:46 BP 127 / 71; Pulse 105; Resp 25 S; Temp 100(A); Pulse Ox 94% on BiPAP; kc6 13:53 Weight 99.79 kg (R); Height 5 ft. 10 in. (R); kc6 14:00 BP 100 / 64; Pulse 99; Resp 18 S; Pulse Ox 99% on BiPAP; kc6 14:15 BP 93 / 68; Pulse 102; Resp 19 S; Pulse Ox 100% on BiPAP; kc6 14:30 BP 86 / 68; Pulse 107; Resp 21 S; Pulse Ox 100% on BiPAP; kc6 14:35 BP 84 / 59; Pulse 98; Resp 20 S; Pulse Ox 100% on BiPAP; kc6 14:45 BP 84 / 38; kc6 14:51 BP 98 / 59; Pulse 100; Resp 20 S; Pulse Ox 100% on BiPAP; kc6 14:55 BP 96 / 64; kc6 15:00 BP 76 / 54; kc6 15:30 BP 76 / 52; Pulse 107; Resp 20; Pulse Ox 99% ; kc6 15:50 BP 109 / 69; Pulse 111; Resp 20; Pulse Ox 99% ; kc6 16:10 BP 101 / 76; Pulse 105; Resp 24; Pulse Ox 99% ; kc6 16:30 BP 117 / 67; Pulse 108; Resp 24; Pulse Ox 99% ; kc6 17:01 BP 83 / 71; Pulse 106; Resp 18 S; Pulse Ox 99% on BiPAP; kc6 17:25 BP 98 / 75; Pulse 100; Resp 25 S; Pulse Ox 100% on BiPAP; kc6 17:30 BP 126 / 93; Pulse 100; Resp 25 S; Pulse Ox 100% on BiPAP; kc6 17:45 BP 132 / 86; Pulse 101; Resp 25 S; Pulse Ox 100% on BiPAP; kc6 18:00 BP 135 / 77; Pulse 101; Resp 26 S; Temp 99.3(O); Pulse Ox 100% on BiPAP; Pain 0/10; kc6 13:53 Body Mass Index 31.57 (99.79 kg, 177.8 cm) kc6 18:00 Pain Scale: Adult kc6 ED Course: 13:46 Patient arrived in ED. kc6 13:46 Fernando Price MD is Attending Physician. ec2 13:47 EKG done, by ED staff, reviewed by Fernando Price MD. bc6 13:48 Triage completed. kc6 13:49 Arm band placed on. EKG completed in triage. Results shown to MD. kc6 13:50 Patient has correct armband on for positive identification. Placed in gown. Bed in low kc6 position. Call light in reach. Side rails up X2. Adult w/ patient. child monitor on. Pulse ox on. NIBP on. Door closed. Noise minimized. Lights dimmed. Warm blanket given. Pillow given. 14:20 Jen Ortiz, STEVEN is Primary Nurse. kc6 14:20 Inserted saline lock: 18 gauge in right antecubital area, using aseptic technique. kc6 Blood collected. Flushed with 10 mL NS. 15:14 Chest Single View XRAY In Process Unspecified. EDMS 15:51 Juanito Carmona MD is Hospitalizing Provider. ec2 17:00 Assisted provider with central line placement. Set up central line tray. Triple lumen kc6 line placed in right femoral. Line placed by Fernando Price MD Placement verified by blood return, Dressed with Tape, Tegaderm, Patient tolerated well. Before procedure, did Practitioner(s) obtain informed consent? Yes. Patient \T\ family education about procedure, CLABSI prevention and S/S of infection? Yes. Time-out/Briefing performed prior to start of procedure? Yes. Was handwashing/sanitizing done immediately prior to procedure? Yes. Was patient positioned to in a way to prevent air embolism? Yes. Was procedure site sterilized? Yes, with chlorhexidine. Was the site allowed to dry? Yes. Was local anesthetic and/or sedation utilized? Yes. During the procedure, did the Practitioner(s) maintain a sterile field? Yes. Were unused ports clamped during insertion? Yes. Was a 2nd qualified MD obtained after 3 unsuccessful insertion attempts? No. Was blood aspirated from each lumen? Yes. After the procedure, did the Practitioner(s) clean the site and apply a sterile dressing? Yes. 17:00 Provided Education on: central line and norepinephrine drip. kc6 18:38 Patient admitted, IV remains in place. kc6 Administered Medications: 14:20 Drug: Rocephin IV 1 grams IV at calculated rate once; Given slow IV push per pharmacy kc6 instructions Route: IV; Rate: calculated rate; Site: right antecubital; 14:51 Follow up: Response: No adverse reaction; IV Status: Completed infusion; IV Intake: [id number] 14:20 Drug: AZITHromycin IVPB 500 mg IVPB once over 1 hrs; (mix in 250 mL NS) Route: IVPB; kc6 Infused Over: 1 hrs; Site: right antecubital; 15:30 Follow up: Response: No adverse reaction; IV Status: Completed infusion; IV Intake: kc6 250ml 14:20 Drug: NS 0.9% IV (30 ml/kg) 30 ml/kg IV at bolus once; Sepsis Protocol Route: IV; Rate: kc6 bolus; Site: right antecubital; 17:25 Follow up: Response: No adverse reaction; IV Status: Completed infusion; IV Intake: kc6 3000ml 15:28 Drug: Norepinephrine IV 0.1 mcg/kg/min IV at calculated rate See Administration kc6 Instructions; (Standard concentration 4 mg / 250 mL D5W); Recommended max rate 3 mcg/kg/min; Titrate 0.05 mcg/kg/min as often as every 5 minutes to achieve goal (see titration policy); Goal parameter MAP greater than 65 mmHg. Route: IV; Rate: calculated rate; Site: right antecubital; 17:35 Follow up: Response: No adverse reaction; Blood pressure is elevated; Rate change 0.15 kc6 mcg/kg/min 18:38 Follow up: Response: No adverse reaction; Blood pressure is elevated; Rate change 0.15 kc6 mcg/kg/min; IV Status: Infusion continued upon admission; IV Intake: 250ml Medication: 18:38 VIS not applicable for this client. kc6 Intake: 14:51 IV: 50ml; Total: 50ml. kc6 15:30 IV: 250ml; Total: 300ml. kc6 17:25 IV: 3000ml; Total: 3300ml. kc6 18:38 IV: 250ml; Total: 3550ml. kc6 Outcome: 15:52 Decision to Hospitalize by Provider. ec2 18:36 Admitted to ICU accompanied by nurse, accompanied by tech, via stretcher, room 3, with kc6 oxygen, on monitor, with chart, Report called to STEVEN Rivera 18:36 Condition: stable 18:36 Instructed on the need for admit, 18:38 Patient left the ED. kc6 Signatures: Dispatcher [employer] Jen Hernandes RN RN kc6 Alyssia Lo Edwin, MD MD ec2 Corrections: (The following items were deleted from the chart) 13:53 13:46 Social history: Smoking status: unknown kc6 kc6 14:22 13:49 Neuro: Level of Consciousness is awake, alert, obeys commands, kc6 kc6 18:41 17:34 BP 98 / 75; Pulse 100bpm; Resp 25bpm; Spontaneous; Pulse Ox 100% BiPAP; kc6 kc6 18:42 18:00 BP 135 / 77; Pulse 101bpm; Resp 26bpm; Spontaneous; Pulse Ox 100% BiPAP; kc6 kc6
--- NOTE | 2024-04-04 15:52 | EDPHYS ---
Physician Documentation [facility] Name: Sami Hubbard Age: 74 yrs Sex: Male : 1950 Arrival Date: 04/04/2024 Time: 13:41 Bed 7 Private MD: ED Physician Fernando Price HPI: 04/04 15:13 This 74 yrs old Male presents to ER via EMS with complaints of Shortness Of ec2 Breath. 15:13 Patient w/ hx of asbestosis, on baseline oxygen. Patient is been having worsening ec2 shortness of breath, is DNR/DNI. Historical: - Allergies: 13:54 No Known Allergies; kc6 - PMHx: 13:49 asbestos; COPD; kc6 13:53 Alzheimer's disease; Dementia; Kidney disease; Atrial fibrillation; kc6 - PSHx: 13:49 hernia; R hip surgery; ulcer repair; kc6 13:53 Appendectomy; kc6 - Immunization history:: Adult Immunizations up to date. - Infectious Disease History:: Denies. - Social history:: Smoking status: Patient/guardian denies using tobacco, the patient reports quitting approximately 40 years ago. - Code Status:: DNR and DNI. ROS: 15:17 Constitutional: as per hpi ec2 Exam: 13:52 ECG was reviewed by the Attending Physician. ec2 15:17 Constitutional: GEN: NAD Head: atraumatic Eyes: EOMI Ears: External ears are ec2 normal. CV: Tachycardia LUNGS: Tachypnea, increased work of breathing. ABD: non-distended SKIN: no evidence of rashes MSK: no evidence of trauma Vital Signs: 13:45 BP 108 / 64; Pulse 101; Resp 20 S; Pulse Ox 99% on BiPAP; kc6 13:46 BP 127 / 71; Pulse 105; Resp 25 S; Temp 100(A); Pulse Ox 94% on BiPAP; kc6 13:53 Weight 99.79 kg (R); Height 5 ft. 10 in. (R); kc6 14:00 BP 100 / 64; Pulse 99; Resp 18 S; Pulse Ox 99% on BiPAP; kc6 14:15 BP 93 / 68; Pulse 102; Resp 19 S; Pulse Ox 100% on BiPAP; kc6 14:30 BP 86 / 68; Pulse 107; Resp 21 S; Pulse Ox 100% on BiPAP; kc6 14:35 BP 84 / 59; Pulse 98; Resp 20 S; Pulse Ox 100% on BiPAP; kc6 14:45 BP 84 / 38; kc6 14:51 BP 98 / 59; Pulse 100; Resp 20 S; Pulse Ox 100% on BiPAP; kc6 14:55 BP 96 / 64; kc6 15:00 BP 76 / 54; kc6 15:30 BP 76 / 52; Pulse 107; Resp 20; Pulse Ox 99% ; kc6 15:50 BP 109 / 69; Pulse 111; Resp 20; Pulse Ox 99% ; kc6 16:10 BP 101 / 76; Pulse 105; Resp 24; Pulse Ox 99% ; kc6 16:30 BP 117 / 67; Pulse 108; Resp 24; Pulse Ox 99% ; kc6 17:01 BP 83 / 71; Pulse 106; Resp 18 S; Pulse Ox 99% on BiPAP; kc6 17:25 BP 98 / 75; Pulse 100; Resp 25 S; Pulse Ox 100% on BiPAP; kc6 17:30 BP 126 / 93; Pulse 100; Resp 25 S; Pulse Ox 100% on BiPAP; kc6 17:45 BP 132 / 86; Pulse 101; Resp 25 S; Pulse Ox 100% on BiPAP; kc6 18:00 BP 135 / 77; Pulse 101; Resp 26 S; Temp 99.3(O); Pulse Ox 100% on BiPAP; Pain 0/10; 6 13:53 Body Mass Index 31.57 (99.79 kg, 177.8 cm) 6 18:00 Pain Scale: Adult [facility] Procedures: 16:57 Central Line: the site was prepped with Betadine, in sterile fashion, a triple lumen ec2 catheter was inserted, in the right in 1 attempts. placement was verified, by blood return, the site was dressed with Tegaderm, using sterile technique, the patient tolerated the procedure, well. MDM: 13:46 Patient medically screened. ec2 13:52 ED course: EKG independently reviewed and interpreted by me, shows sinus tachycardia, ec2 rate 105, no acute ST segment elevations, nonconcerning intervals.. 15:17 Data reviewed: vital signs. ED course: Patient arrives today for evaluation of ec2 shortness of breath. History gathered from EMS, patient hypoxic with saturations in the 50s. History also gathered from family. Placed on BiPAP prior to arrival. Saturations mid 90s on arrival. Examination yields tachypneic dividual has increased work of breathing. I had an extensive conversation regarding goals of care and patient is DNR/DNI.. 15:18 ED course: Proceed with a septic workup and empirically treated with antibiotics. ec2 Patient noted to have multiple low blood pressures, subsequently had extensive conversation regarding possible pressors, peripheral versus central placement and they were agreeable. Will start Levophed and place central line. Sepsis reassessment complete. . 15:30 ED course: CBC shows leukocytosis of 21.3, slight anemia. Metabolic profile shows renal ec2 dysfunction with a creatinine of 1.54 and GFR 47. Lactic acidosis of 4.0. . 16:57 ED course: Given pressor requirement, I placed a central line without issue. Placed in ec2 the right groin.. 04/04 13:47 Order name: Blood Culture Adult (2) ec2 04/04 13:47 Order name: CBC with Diff ec2 04/04 13:47 Order name: CMP; Complete Time: 15:29 ec2 04/04 13:47 Order name: Lactate w/ 2H reflex if indic.; Complete Time: 15:29 ec2 04/04 13:47 Order name: Protime (+inr); Complete Time: 15:29 ec2 04/04 13:47 Order name: Ptt, Activated; Complete Time: 15:29 ec2 04/04 16:02 Order name: ABG Arterial Blood Gas; Complete Time: 16:14 EDMS 04/04 16:14 Order name: Add On-Lab snw 04/04 16:25 Order name: Phosphorus; Complete Time: 16:58 EDMS 04/04 16:25 Order name: Magnesium; Complete Time: 16:58 EDMS 04/04 16:43 Order name: Ghost Lactate-NO COLLECT Timer; Complete Time: 16:58 EDMS 04/04 17:05 Order name: Protime (+INR) EDMS 04/04 17:05 Order name: PTT, Activated Partial Thromb EDMS 04/04 17:05 Order name: CBC with Automated Diff EDMS 04/04 17:05 Order name: CBC with Automated Diff EDMS 04/04 17:05 Order name: CBC with Automated Diff EDMS 04/04 17:05 Order name: CBC with Automated Diff [facility] 04/04 17:05 Order name: Comprehensive Metabolic Panel [facility] 04/04 17:05 Order name: Comprehensive Metabolic Panel [facility] 04/04 17:05 Order name: Comprehensive Metabolic Panel [facility] 04/04 17:05 Order name: Comprehensive Metabolic Panel [facility] 04/04 17:05 Order name: Lipid Profile [facility] 04/04 17:05 Order name: Lipid Profile [facility] 04/04 17:05 Order name: Magnesium [facility] 04/04 17:05 Order name: Magnesium [facility] 04/04 17:05 Order name: Magnesium [facility] 04/04 17:05 Order name: Magnesium [facility] 04/04 17:05 Order name: Phosphorus [facility] 04/04 17:05 Order name: Phosphorus [facility] 04/04 17:05 Order name: Phosphorus [facility] 04/04 17:05 Order name: Phosphorus [facility] 04/04 17:48 Order name: Lactate Sepsis 2 HR Follow-up [facility] 04/04 13:47 Order name: Chest Single View XRAY; Complete Time: 16:58 ec2 04/04 15:49 Order name: BiPap ([employer] Only) [facility] 04/04 13:47 Order name: Accucheck; Complete Time: 14:20 ec2 04/04 13:47 Order name: Cardiac monitoring; Complete Time: 13:54 ec2 04/04 13:47 Order name: EKG - Nurse/Tech; Complete Time: 13:47 ec2 04/04 13:47 Order name: IV Saline Lock - Large Bore; Complete Time: 14:20 ec2 04/04 13:47 Order name: Labs collected and sent; Complete Time: 14:20 ec2 04/04 13:47 Order name: O2 Per Protocol; Complete Time: 13:54 ec2 04/04 13:47 Order name: O2 Sat Monitoring; Complete Time: 13:54 ec2 04/04 13:47 Order name: Vital Signs; Complete Time: 13:54 ec2 Administered Medications: 14:20 Drug: Rocephin IV 1 grams IV at calculated rate once; Given slow IV push per pharmacy kc6 instructions Route: IV; Rate: calculated rate; Site: right antecubital; 14:51 Follow up: Response: No adverse reaction; IV Status: Completed infusion; IV Intake: [id number] 14:20 Drug: AZITHromycin IVPB 500 mg IVPB once over 1 hrs; (mix in 250 mL NS) Route: IVPB; kc6 Infused Over: 1 hrs; Site: right antecubital; 15:30 Follow up: Response: No adverse reaction; IV Status: Completed infusion; IV Intake: kc6 250ml 14:20 Drug: NS 0.9% IV (30 ml/kg) 30 ml/kg IV at bolus once; Sepsis Protocol Route: IV; Rate: kc6 bolus; Site: right antecubital; 17:25 Follow up: Response: No adverse reaction; IV Status: Completed infusion; IV Intake: kc6 3000ml 15:28 Drug: Norepinephrine IV 0.1 mcg/kg/min IV at calculated rate See Administration kc6 Instructions; (Standard concentration 4 mg / 250 mL D5W); Recommended max rate 3 mcg/kg/min; Titrate 0.05 mcg/kg/min as often as every 5 minutes to achieve goal (see titration policy); Goal parameter MAP greater than 65 mmHg. Route: IV; Rate: calculated rate; Site: right antecubital; 17:35 Follow up: Response: No adverse reaction; Blood pressure is elevated; Rate change 0.15 kc6 mcg/kg/min 18:38 Follow up: Response: No adverse reaction; Blood pressure is elevated; Rate change 0.15 kc6 mcg/kg/min; IV Status: Infusion continued upon admission; IV Intake: 250ml Disposition: 15:51 Critical Care:. ec2 Disposition Summary: 04/04/24 15:52 Hospitalization Ordered Notes: Hospitalization Status: Inpatient Admission ec2 Provider: Juanito Carmona Location: Intensive Care Unit ec2 Condition: Serious ec2 Problem: an acute exacerbation ec2 Symptoms: have improved ec2 Bed/Room Type: Standard ec2 Room Assignment: 3-(04/04/24 17:21) bp Diagnosis - Severe sepsis with septic shock ec2 - Lactic Acidosis ec2 - COPD/ Chronic obstructive pulmonary disease with (acute) exacerbation ec2 - Pneumonia, unspecified organism ec2 Forms: - Medication Reconciliation Form ec2 - SBAR form ec2 - Leadership Thank You Letter ec2 Critical care time excluding procedures: 15:51 Critical care time: Bedside Care: 30 minutes, Consultation: 5 minutes. Total time: 35 ec2 minutes Signatures: Dispatcher [employer] Carolyn Valladares FNP-C FNP-Csnw Zackary Ponce, RN RN bp Jen Ortiz RN RN kc6 Fernando Price MD MD ec2 Corrections: (The following items were deleted from the chart) 13:48 13:48 BLOOD CULTURE*+BA.LAB.BRZ ordered. EDMS EDMS 13:48 13:48 CBC+H.LAB.BRZ ordered. EDMS EDMS 13:48 13:48 COMPREHENSIVE METABOLIC PANEL+C.LAB.BRZ ordered. EDMS EDMS 13:48 13:48 LACTATE+C.LAB.BRZ ordered. EDMS EDMS 13:48 13:48 PROTIME (+INR)+COAG.LAB.BRZ ordered. EDMS EDMS 13:48 13:48 PTT, ACTIVATED+COAG.LAB.BRZ ordered. EDMS EDMS 13:53 13:46 Social history: Smoking status: unknown kc6 kc6 15:17 15:13 Patient w/ hx of asbestosis, on baseline oxygen. . ec2 ec2 17:21 15:52 ec2 bp
--- NOTE | 2024-04-04 16:03 | P.HP ---
Certification for Inpatient Patient admitted to: Inpatient With expected LOS: >2 Midnights Patient will require the following post-hospital care: Home Health Services (working on O2 delivery types at home, On 5L around the clock and then uptitrated to CPAP) Practitioner: I am a practitioner with admitting privileges, knowledge of patient current condition, hospital course, and medical plan of care. Services: Services provided to patient in accordance with Admission requirements found in Title 42 Section 412.3 of the Code of Federal Regulations <Carolyn Malone - Last Filed: 04/04/24 17:06> Patient History Date of Service: 04/04/24 Reason for admission: Severe sepsis with shock, hypoxia, and lactic acidosis History of Present Illness: Mr. Sami Shook is a 74-year-old gentleman with a past medical history of dementia, asbestosis, and COPD who was admitted on 03/27/2024 for dyspnea on his regular 5 L O2 via nasal cannula. During that admission, his oxygen requirement was 6 to 10 L. He was assessed by Dr. Whitley, received IV methylprednisone, scheduled nebs, and 1 unit of blood. There was some question of seizure activity at Dr. Whitley's office on the day of admission so Dr. Siegel was consulted and an EEG was performed which was reported as normal. The patient was started on Keppra 500 mg p.o. twice daily. He was then transitioned over to oral prednisone and discharged home with noninvasive ventilator and a 10 L flow oxygen concentrator on discharge 04/02/2024. Mrs. Hubbard says for the last 2 days she has tried to adjust the patient's BiPAP however he got agitated and pulled the mask off with pulse ox readings between 48 and 52. They had a Zoom appointment with his PCP and she directed him to the emergency department via EMS. Labs: WBC 21.3 with 89.7% neutrophils, platelets of 481. Anemia of chronic disease with a H&H of 10.6/32.6 CMP with a sodium of 134, BUN of 29, creatinine 1.54 with a GFR of 47, minimally elevated AST/ALT with no elevation in T. bili Lactate 4 secondary to hypoxemia, INR 1.27 Imaging: Chest x-ray impression: "Patchy bilateral airspace opacities, may reflect m ultifocal pneumonia or pulmonary edema." On arrival he was placed on BiPAP, initial ABG showed a pO2 of 62.6, on admission assessment patient tolerating BiPAP well with a rate of 22 with SpO2 of 100% His states there must be something wrong with the NIV set up at home and called to have evaluated. Mr. Hubbard declines intubation if his condition should deteriorate, declines CPR, he does except pressors and other interventions and will be admitted to ICU on Levophed. Home medications list reviewed: Yes - Past Medical/Surgical History Has patient received pneumonia vaccine in the past: No Diabetic: No -: COPD -: asbestos -: Dementia -: CKD -: Seizure? -: Hernia repair -: Right hip surgery -: Cauterized ulcer -: appendectomy Psychosocial/ Personal History: . Lives in [place]. [employer]regation. Chooses DNR/DNI. Has home health, wheelchair, O2 concentrator, recently acquired NIV - Social History Smoking Status: Former smoker Alcohol use: No CD- Drugs: No Caffeine use: Yes Place of Residence: Home <Carolyn Malone - Last Filed: 04/04/24 17:06> Date of Service: 04/04/24 <Juanito Carmona - Last Filed: 04/04/24 18:19> Allergies No Known Allergies Allergy (Unverified 03/27/24 07:48) Home Medications: Atorvastatin Calcium 40 mg PO DAILY 03/27/24 Donepezil HCl 10 mg PO BEDTIME 03/27/24 Levothyroxine [Synthroid*] 200 mcg PO [id number] 03/27/24 Memantine HCl 10 mg PO BID* 03/27/24 Oxybutynin Chloride [Oxybutynin Chloride ER] 10 mg PO DAILY 03/27/24 Pantoprazole [Protonix Tab*] 40 mg PO DAILY 03/27/24 Quetiapine Fumarate [Seroquel] 25 mg PO BID* 03/27/24 Sertraline [Zoloft*] 100 mg PO DAILY 03/27/24 Tamsulosin [Flomax*] 0.4 mg PO BID 03/27/24 Trazodone [Desyrel*] 50 mg PO PRN PRN 03/27/24 levETIRAcetam [Keppra*] 500 mg PO BID #60 tab 03/29/24 predniSONE [Prednisone*] 20 mg PO BID #20 tab 04/02/24 Review of Systems 10-point ROS is otherwise unremarkable General: Weakness, Malaise Respiratory: Shortness of Breath, SOB with Excertion, As per HPI Gastrointestinal: Unremarkable Genitourinary: Unremarkable Musculoskeletal: Unremarkable Integumentary: Unremarkable Neurological: Weakness, As per HPI Lymphatics: Unremarkable <Carolyn Malone Armin - Last Filed: 04/04/24 17:06> Physical Examination - Physical Exam General: Alert, Oriented x3, Cooperative, Obese HEENT: Atraumatic, Normocephalic Neck: Supple Respiratory: Diminished, Crackles/rales Cardiovascular: No edema, Normal pulses, Regular rate/rhythm, Other (At 106) Capillary refill: <2 Seconds Gastrointestinal: Normal bowel sounds, Soft and benign Musculoskeletal: No clubbing, No swelling Integumentary: No rashes Neurological: Normal speech, Normal tone, Normal affect Lymphatics: No axilla or inguinal lymphadenopathy External genitalia: Deferred Rectal: Deferred (Patient on BiPAP and Levophed on assessment) - Studies Laboratory Data (last 24 hrs) 04/04/24 04/04/24 04/04/24 14:00 14:00 14:00 WBC 21.30 H Hgb 10.6 L Hct 32.6 L Plt Count 481 H PT 14.1 H INR 1.27 APTT 27.2 Sodium 134 L Potassium 3.9 BUN 29 H Creatinine 1.54 H Glucose 106 Total Bilirubin 0.6 AST 62 H ALT 65 H Alkaline Phosphatase 98 <MaloneCarolyn Armin - Last Filed: 04/04/24 17:06> - Studies Laboratory Data (last 24 hrs) 04/04/24 04/04/24 04/04/24 14:00 14:00 14:00 WBC Hgb Hct Plt Count PT 14.1 H INR 1.27 APTT 27.2 Sodium 134 L Potassium 3.9 BUN 29 H Creatinine 1.54 H Glucose 106 Phosphorus 3.2 Magnesium 2.1 Total Bilirubin 0.6 AST 62 H ALT 65 H Alkaline Phosphatase 98 04/04/24 14:00 WBC 21.30 H Hgb 10.6 L Hct 32.6 L Plt Count 481 H PT INR APTT Sodium Potassium BUN Creatinine Glucose Phosphorus Magnesium Total Bilirubin AST ALT Alkaline Phosphatase <Juanito Carmona - Last Filed: 04/04/24 18:19> Assessment and Plan - Plan Severe sepsis with shock Hypoxia and lactic acidosis Likely pulmonary source secondary history of asbestosis Anemia of chronic disease Mild CKD with WILLIS secondary to sepsis/shock Patient chooses DNR/DNI for CPR/intubation Repeat chest x-ray Telemetry Zosyn and Comycin Comfort measures/pain control Continue BiPAP with pulse ox Continue Levophed via central venous access and titrate for MAP of 60 or greater Gentle IVF Dementia, solitary seizure, hypothyroidism, COPD Continue home meds as directed VTE/GI prophylaxis Discharge Plan: Home Plan to discharge in: Greater than 2 days - Advance Directives Does patient have a Living Will: No Does patient have a Durable POA for Healthcare: No - Code Status/Comfort Care Code Status: Do Not Intubate <Carolyn Malone - Last Filed: 04/04/24 17:06> - Plan Pt seen and examined. I agree with the note by the SAWMILL MANAGER. Pt is a 74 yo male with past medical history of asbestosis, A. fib, CKD, dementia, Alzheimers disease, hernia and ulcer repair who presents with shortness of breath. Of note, pt was recently discharged from this hospital with BIPAP. Pt tried to adjust the BIPAP this am but he became anxious because his oxygen saturation dropped to 50%. It progressively worsened over the past few days and pt came to the ER for evaluation. On admission, pt was hypoxic. He refused intubation or CPR. Lab studies show wbc 21.3, Hgb 10.6, K 3.9, Cr 1.54, and lactate 4.0. At bedside, pt is in NAD. He is DNR A/P: Septic shock 2/2 Multifocal pneumonia: Per CXR. Will give pressor, iv vanc and zosyn. Keep MAP > 65. Acute resp failure with hypoxia: Likely due to multifocal pneumonia. Will continue abx, solumedrol, duoneb, oxygen, and abx. Hx of Asbestosis: Will continue steroid and oxygen. Will consult Pulm. A.Fib: Continue telemetry. Hold BB due to hypotension. Dementia: Continue supportive care. DVT ppx: SCD Code: DNR <Juanito Carmona - Last Filed: 04/04/24 18:19>
[2024-04-04 16:10] LABS: Arterial Blood Carboxyhemoglob 1.5 % (0-1.5); Blood Gas Oxyhemoglobin 88.5 % (94-97); Blood O2 Saturation 91.5 % (92-98.5)
[2024-04-04 16:11] LABS: Blood Gas THB 11.4 g/dl (12-18)
--- NOTE | 2024-04-04 16:19 | RAD REPORT ---
EXAMINATION: ONE VIEW CHEST XR CLINICAL INDICATION: Male, 74 years old.,COUGH TECHNIQUE: Frontal chest projection is submitted. Examination is limited by patient positioning and t echnique. COMPARISON: 03/14/2024 FINDINGS: Patchy bilateral air space opacities, background interstitial prominence, more pronounced on the righ t. No pneumothorax or sizable effusion. The heart is normal in size. IMPRESSION: Patchy bilateral airspace opacities, may reflect multifocal pneumonia or pulmonary edema.
[2024-04-04 16:34] LABS: Magnesium 2.1 mg/dL (1.6-2.4); Phosphorus 3.2 mg/dL (2.5-4.9)
[2024-04-04] MEDS ORDERED: SODIUM CHLORIDE 0.9% 10ML INJ IV PRN (16:44)
[2024-04-04] MEDS: HEPARIN 5000 UNIT/ML 1 ML VIAL SQ SCH (17:00)
[2024-04-04] MEDS ORDERED: NOREPINEPHRINE 4 MG in D5W 250 ML IV SCH (17:00)
[2024-04-04] MEDS ORDERED: NOREPINEPHRINE 16 MG in D5W 250 ML IV SCH (18:43)
[2024-04-04] MEDS: VANCOMYCIN 1 GM in NA CHLORIDE 0.9% 250 ML IVPB SCH (19:00)
[2024-04-04] MEDS: NA CHLORIDE 0.9% 1,000 ML IV SCH (19:24)
[2024-04-04] MEDS: METHYLPREDNISOLONE 125 MG INJ IV SCH (19:24)
[2024-04-04] MEDS: VANCOMYCIN 1 GM in NA CHLORIDE 0.9% 250 ML IVPB ONE (19:25)
[2024-04-04] MEDS: IPRATROPIUM BROM 0.5MG/2.5ML NEB SCH (19:27)
[2024-04-04] MEDS: ALBUTEROL 2.5 MG/3 ML NEB SOL NEB SCH (19:27)
[2024-04-04] MEDS ORDERED: CEFTRIAXONE 1,000 MG in NA CHLORIDE 0.9% 50 ML IVPB SCH (21:00)
[2024-04-04] MEDS: levETIRAcetam 500 MG TAB PO SCH (21:15)
[2024-04-04] MEDS: ATORVASTATIN 40 MG TAB PO SCH (21:15)
[2024-04-04] MEDS: PANTOPRAZOLE 40 MG INJ IVP SCH (21:15)
[2024-04-04] MEDS: VANCOMYCIN 1.5 GM in NA CHLORIDE 0.9% 500 ML IVPB ONE (21:16)
[2024-04-04] MEDS: FERROUS SULFATE 325 MG TAB PO SCH (21:16)
[2024-04-04] MEDS: QUETIAPINE 25 MG TAB PO SCH (21:16)
[2024-04-04 21:45] LABS: Band Neutrophils 2 % (0-1); Blood Morphology Comment NOT SEEN (NOT SEEN); Differential Total Cells Count 100; Eosinophils 1 % (0-3); Lymphocytes 7 % (15-42); Monocytes 7 % (0-10); Platelet Estimate INCR; Segmented Neutrophils 83 % (40-80)
[2024-04-05] MEDS: PIPER TAZO 3.375 GM in NA CHLORIDE 0.9% 100 ML IV SCH (00:24)
[2024-04-05 05:19] LABS: Absolute Lymphocytes (CBC) 0.5 K/uL (0.7-4.9); Absolute Monocytes 0.2 K/uL (0.1-1.3); Absolute Neutrophil 11.4 K/uL (1.8-8.0); Basophils % 0.2 % (0-1.3); Hematocrit 28.6 % (39.6-49.0); Lymphocytes % 3.8 % (15.3-44.8); MCH 29.1 pg (27.0-35.0); MCHC 31.5 g/dL (32.0-36.0); MCV 92.4 fL (80-100); MPV 8.2 fL (7.6-11.3); Monocytes % 1.7 % (3.3-12.3); PT Prothrombin Time 14.5 SECONDS (9.4-12.5); PTT, Activated Partial Thromb 27.7 SECONDS (24.3-36.9); Platelets 361 thou/uL (152-406); Protime INR 1.3; Red Cell Distribution Width 15.7 % (12.1-15.2)
[2024-04-05 05:21] LABS: Neutrophils % 94.3 % (41.7-73.7)
[2024-04-05 05:31] LABS: Albumin 2.1 g/dL (3.4-5.0); Albumin/Globulin Ratio 0.5 (1.1-1.8); Anion Gap 8.5 mEq/L (5.0-15.0); Bilirubin Total 0.4 mg/dL (0.2-1.0); Globulin 4.2 g/dL (2.3-3.5); Magnesium 2.2 mg/dL (1.6-2.4); Phosphorus 3.3 mg/dL (2.5-4.9); Potassium 4.5 mEq/L (3.5-5.1); Protein, Total 6.3 g/dL (6.4-8.2)
[2024-04-05] MEDS: LEVOTHYROXINE SOD 0.1 MG TAB PO SCH (06:22)
--- NOTE | 2024-04-05 08:17 | P.PN ---
Subjective Date of Service: 04/05/24 Chief Complaint: Severe sepsis with shock, hypoxia, and lactic acidosis Subjective: Improving (levophed weaned, pt able to rest on BiPap, states he is feeling much better) <Carolyn Malone - Last Filed: 04/05/24 08:13> Date of Service: 04/05/24 <Juanito Carmona Matt - Last Filed: 04/05/24 10:08> Review of Systems 10-point ROS is otherwise unremarkable General: Unremarkable Eyes: Unremarkable ENT: Unremarkable Respiratory: Other (Improvement in shortness of breath, improvement in hypoxia) Cardiovascular: Unremarkable Gastrointestinal: Unremarkable Genitourinary: Unremarkable Musculoskeletal: Unremarkable Integumentary: Unremarkable Neurological: Unremarkable Lymphatics: Unremarkable <Carolyn Malone - Last Filed: 04/05/24 08:13> Physical Examination - Vital Signs Temperature: 97.4 F Blood Pressure: 120/61 Pulse: 79 Respirations: 27 Pulse Ox (%): 96 - Physical Exam General: Alert, Oriented x3, Cooperative, Mild distress, Other (Significant improvement over yesterday) HEENT: Atraumatic, Normocephalic Neck: Supple Respiratory: Diminished, Expiratory wheezes, Other (On BiPAP, 70% FiO2, decreased work of breathing over yesterday) Cardiovascular: No edema, Normal pulses Capillary refill: <2 Seconds Gastrointestinal: Normal bowel sounds Musculoskeletal: No clubbing, No swelling Neurological: Normal speech, Normal tone, Normal affect Lymphatics: No axilla or inguinal lymphadenopathy External genitalia: Deferred Rectal: Deferred - Studies Laboratory Data (last 24 hrs) 04/04/24 04/04/24 04/04/24 14:00 14:00 14:00 WBC Hgb Hct Plt Count PT 14.1 H INR 1.27 APTT 27.2 Sodium 134 L Potassium 3.9 BUN 29 H Creatinine 1.54 H Glucose 106 Phosphorus 3.2 Magnesium 2.1 Total Bilirubin 0.6 AST 62 H ALT 65 H Alkaline Phosphatase 98 04/04/24 14:00 WBC 21.30 H Hgb 10.6 L Hct 32.6 L Plt Count 481 H PT INR APTT Sodium Potassium BUN Creatinine Glucose Phosphorus Magnesium Total Bilirubin AST ALT Alkaline Phosphatase <Carolyn Malone - Last Filed: 04/05/24 08:13> - Studies Laboratory Data (last 24 hrs) 04/04/24 04/04/24 04/04/24 14:00 14:00 14:00 WBC Hgb Hct Plt Count PT 14.1 H INR 1.27 APTT 27.2 Sodium 134 L Potassium 3.9 BUN 29 H Creatinine 1.54 H Glucose 106 Phosphorus 3.2 Magnesium 2.1 Total Bilirubin 0.6 AST 62 H ALT 65 H Alkaline Phosphatase 98 04/04/24 14:00 WBC 21.30 H Hgb 10.6 L Hct 32.6 L Plt Count 481 H PT INR APTT Sodium Potassium BUN Creatinine Glucose Phosphorus Magnesium Total Bilirubin AST ALT Alkaline Phosphatase <Juanito Carmona - Last Filed: 04/05/24 10:08> Assessment And Plan - Plan Severe sepsis with shock Hypoxia and lactic acidosis Likely pulmonary source secondary history of asbestosis Anemia of chronic disease Mild CKD with WILLIS secondary to sepsis/shock Patient chooses DNR/DNI for CPR/intubation Repeat chest x-ray Telemetry Zosyn and vancomycin, white count down by almost half today 04/05/2024 Comfort measures/pain control Continue BiPAP with pulse ox, patient would like to try Vapotherm 04/05/2024 for increased comfort/p.o. intake Continue Levophed via central venous access and titrate for MAP of 60 or greater Gentle IVF Consult Dr. Whitley Dementia, solitary seizure, hypothyroidism, COPD Continue home meds as directed VTE/GI prophylaxis <Carolyn Malone - Last Filed: 04/05/24 08:13> - Plan Pt seen and examined. I agree with the note by the TOUCH UP CARVER. Pt is using BIPAP. Will continue to adjust BIPAP setting as tolerated. Continue solumedrol and iv vanc and zosyn. Will resume home meds. <Juanito Carmona - Last Filed: 04/05/24 10:08>
[2024-04-05] MEDS: FOLIC ACID 1 MG TABLET PO SCH (08:20)
[2024-04-05] MEDS ORDERED: AZITHROMYCIN IV 500 MG in NA CHLORIDE 0.9% 250 ML IVPB SCH (09:00)
[2024-04-05] MEDS: FUROSEMIDE 20 MG TABLET PO SCH (09:38)
[2024-04-05] MEDS: SERTRALINE HCL 100 MG TAB PO SCH (09:38)
[2024-04-05] MEDS ORDERED: TRAZODONE 50 MG TABLET PO PRN (10:06)
[2024-04-05] MEDS: MORPHINE 2 MG/ML SYR IV PRN (11:39)
--- NOTE | 2024-04-05 12:11 | EKG ---
Test Date: 2024-04-04 Test Time: 13:43:39 Metallurgical Lab Technician: PATRICIOW MEASUREMENT RESULTS: Intervals: Rate: 105 MD: 170 QRSD: 88 QT: 350 QTc: 462 False Pass: P: 41 MD: 170 QRS: 56 T: 12 INTERPRETIVE STATEMENTS: Sinus tachycardia Cannot rule out Inferior infarct, age undetermined Abnormal ECG Compared to ECG 03/27/2024 01:10:14 Myocardial infarct finding now present Sinus rhythm no longer present Electronically Signed On 04-05-24 12:07:56 CDT by Atul Cruz
--- NOTE | 2024-04-05 12:28 | RAD REPORT ---
EXAMINATION: ONE VIEW CHEST XR CLINICAL INDICATION: Male, 74 years old.,tachypnea TECHNIQUE: Frontal chest projection is submitted. Examination is limited by patient positioning and t echnique. COMPARISON: 04/04/2024 FINDINGS: Stable patchy bilateral airspace opacities. No pneumothorax or sizable effusion. The heart is normal in size. IMPRESSION: Stable findings, may reflect multifocal pneumonia or pulmonary edema.
[2024-04-05] MEDS: QUETIAPINE 25 MG TAB PO SCH (13:11)
[2024-04-05] MEDS: MEMANTINE HCL 10 MG TABLET PO SCH (13:11)
[2024-04-05] MEDS: FUROSEMIDE 20 MG/ 2ML VIAL IV ONE (13:11)
[2024-04-05] MEDS: DEXMEDETOMIDINE HCL 1,000 MCG in NA CHLORIDE 0.9% 490 ML IV SCH (13:14)
[2024-04-05] MEDS ORDERED: LORazepam 2 MG/ML VIAL IV PRN (15:41)
--- NOTE | 2024-04-05 15:47 | P.DS ---
Admission Date: 04/04/24 Discharge Date: 04/07/24 Reason for Admission: Severe sepsis with shock, hypoxia, and lactic acidosis Consultations: Dr. [facility] Brief History of Present Illness: Mr. Sami Shook is a 74-year-old gentleman with a past medical history of dementia, asbestosis, and COPD who was admitted on 03/27/2024 for dyspnea on his regular 5 L O2 via nasal cannula. During that admission, his oxygen requirement was 6 to 10 L. He was assessed by Dr. Whitley, received IV methylprednisone, scheduled nebs, and 1 unit of blood. There was some question of seizure activity at Dr. Whitley's office on the day of admission so Dr. Siegel was consulted and an EEG was performed which was reported as normal. The patient was started on Keppra 500 mg p.o. twice daily. He was then transitioned over to oral prednisone and discharged home with noninvasive ventilator and a 10 L flow oxygen concentrator on discharge 04/02/2024. Mrs. Hubbard says for the last 2 days she has tried to adjust the patient's BiPAP however he got agitated and pulled the mask off with pulse ox readings between 48 and 52. They had a Zoom appointment with his PCP and she directed him to the emergency department via EMS. Labs: WBC 21.3 with 89.7% neutrophils, platelets of 481. Anemia of chronic disease with a H&H of 10.6/32.6 CMP with a sodium of 134, BUN of 29, creatinine 1.54 with a GFR of 47, minimally elevated AST/ALT with no elevation in T. bili Lactate 4 secondary to hypoxemia, INR 1.27 Imaging: Chest x-ray impression: "Patchy bilateral airspace opacities, may reflect multifocal pneumonia or pulmonary edema." On arrival he was placed on BiPAP, initial ABG showed a pO2 of 62.6, on admission assessment patient tolerating BiPAP well with a rate of 22 with SpO2 of 100% His states there must be something wrong with the NIV set up at home and called to have evaluated. Mr. Hubbard declines intubation if his condition should deteriorate, declines CPR, he does except pressors and other interventions and will be admitted to ICU on Levophed. Hospital Course: Mr. Hubbard was doing well on Bipap at 60% fio2, he intermittently used Vapotherm for eating and drinking. Hospice came to consult for home hospice care. [facility] [place] [facility] would like to discharge home after trouble shooting is done on his at home NIV. Mr. Hubbard was in significant respiratory distress on reassessment 04/06/24 morning. Morphine given, pt placed back on Bipap alternating with Vapotherm. His condition continued to worsen. He was changed to comfort care and was able to facetime his Daughter, speak with his family at bedside. He had cardiopulmonary arrest shortly afterward. <Carolyn Malone - Last Filed: 04/07/24 12:14> Admission Date: 04/04/24 Discharge Date: 04/07/24 Hospital Course: Pt seen and examined. I agree with the note by the VAT HOUSE SUPERVISOR. His respiratory status worsened and his family made him comfort care. He at 1440 with family members at bedside <Juanito Carmona - Last Filed: 04/07/24 22:03> Disposition: Discharge Condition: Vital Signs/Physical Exam: Temp Pulse Resp BP Pulse Ox 98.0 F 67 31 H 116/64 92 04/05/24 12:00 04/05/24 15:00 04/05/24 15:00 04/05/24 15:00 04/05/24 15:00 General: Moderate distress, Confused, Other (Hypoxic) HEENT: Atraumatic, Normocephalic Neck: Supple Respiratory: Other (Tachypnea, hypoxia, significant increased work of breathing, cracked) Cardiovascular: No edema Capillary refill: >2 Seconds Musculoskeletal: No clubbing Integumentary: No rashes Neurological: Other (Holding it and IV tubing, at bedside, and IV abandoned for BiPAP, discussed comfort care. Patient would not make it to hospice at home), Abnormal affect Lymphatics: No axilla or inguinal lymphadenopathy Urinary: Ling catheter External genitalia: Deferred Rectal: Deferred Laboratory Data at Discharge: WBC 12.10 thou/uL (4.3-10.9) H 04/05/24 04:50 Hgb 9.0 g/dL (13.6-17.9) L D 04/05/24 04:50 Hct 28.6 % (39.6-49.0) L 04/05/24 04:50 Plt Count 361 thou/uL (152-406) 04/05/24 04:50 PT 14.5 SECONDS (9.4-12.5) H 04/05/24 04:50 INR 1.30 04/05/24 04:50 APTT 27.7 SECONDS (24.3-36.9) 04/05/24 04:50 Sodium 136 mEq/L (136-145) 04/05/24 04:50 Potassium 4.5 mEq/L (3.5-5.1) D 04/05/24 04:50 BUN 29 mg/dL (7-18) H 04/05/24 04:50 Creatinine 1.37 mg/dL (0.70-1.30) H 04/05/24 04:50 Glucose 137 mg/dL (74-106) H 04/05/24 04:50 Phosphorus 3.3 mg/dL (2.5-4.9) 04/05/24 04:50 Magnesium 2.2 mg/dL (1.6-2.4) 04/05/24 04:50 Total Bilirubin 0.4 mg/dL (0.2-1.0) 04/05/24 04:50 AST 53 U/L (15-37) H 04/05/24 04:50 ALT 52 U/L (16-61) 04/05/24 04:50 Alkaline Phosphatase 89 U/L (45-117) 04/05/24 04:50 Triglycerides 87 mg/dL (<150) 04/05/24 04:50 Cholesterol 141 mg/dL (<200) 04/05/24 04:50 HDL Cholesterol 40 mg/dL (40-60) 04/05/24 04:50 Cholesterol/HDL Ratio 3.53 04/05/24 04:50 <Malone,Carolyn Armin - Last Filed: 04/07/24 12:14> Vital Signs/Physical Exam: Temp Pulse Resp BP Pulse Ox 98.4 F 71 25 H 137/63 82 L 04/06/24 12:28 04/06/24 13:00 04/06/24 13:24 04/06/24 13:00 04/06/24 14:00 Laboratory Data at Discharge: WBC 18.60 thou/uL (4.3-10.9) H 04/06/24 05:50 Hgb 9.6 g/dL (13.6-17.9) L 04/06/24 05:50 Hct 29.5 % (39.6-49.0) L 04/06/24 05:50 Plt Count 362 thou/uL (152-406) 04/06/24 05:50 PT 14.5 SECONDS (9.4-12.5) H 04/05/24 04:50 INR 1.30 04/05/24 04:50 APTT 27.7 SECONDS (24.3-36.9) 04/05/24 04:50 Sodium 140 mEq/L (136-145) 04/06/24 05:50 Potassium 4.0 mEq/L (3.5-5.1) 04/06/24 05:50 BUN 37 mg/dL (7-18) H 04/06/24 05:50 Creatinine 1.35 mg/dL (0.70-1.30) H 04/06/24 05:50 Glucose 157 mg/dL (74-106) H 04/06/24 05:50 Phosphorus 3.2 mg/dL (2.5-4.9) 04/06/24 05:50 Magnesium 2.3 mg/dL (1.6-2.4) 04/06/24 05:50 Total Bilirubin 0.4 mg/dL (0.2-1.0) 04/06/24 05:50 AST 45 U/L (15-37) H 04/06/24 05:50 ALT 52 U/L (16-61) 04/06/24 05:50 Alkaline Phosphatase 116 U/L (45-117) D 04/06/24 05:50 Triglycerides 87 mg/dL (<150) 04/05/24 04:50 Cholesterol 141 mg/dL (<200) 04/05/24 04:50 HDL Cholesterol 40 mg/dL (40-60) 04/05/24 04:50 Cholesterol/HDL Ratio 3.53 04/05/24 04:50 <Juanito Carmona - Last Filed: 04/07/24 22:03> <Malone,Carolyn Funez - Last Filed: 04/07/24 12:14> <Juanito Carmona - Last Filed: 04/07/24 22:03> Home Medications: Atorvastatin Calcium 40 mg PO DAILY 03/27/24 Donepezil HCl 10 mg PO BEDTIME 03/27/24 Levothyroxine [Synthroid*] 200 mcg PO [id number] 03/27/24 Memantine HCl 10 mg PO BID* 03/27/24 Oxybutynin Chloride [Oxybutynin Chloride ER] 10 mg PO DAILY 03/27/24 Pantoprazole [Protonix Tab*] 40 mg PO DAILY 03/27/24 Quetiapine Fumarate [Seroquel] 25 mg PO BID* 03/27/24 Sertraline [Zoloft*] 100 mg PO DAILY 03/27/24 Tamsulosin [Flomax*] 0.4 mg PO BID 03/27/24 Trazodone [Desyrel*] 50 mg PO PRN PRN 03/27/24 levETIRAcetam [Keppra*] 500 mg PO BID #60 tab 03/29/24 predniSONE [Prednisone*] 20 mg PO BID #20 tab 04/02/24 Physician Discharge Instructions: 04/05/24 Mr. Hubbard was doing well on Bipap at 60% fio2, he intermittently used Vapotherm for eating and drinking. Hospice came to consult for home hospice care. [facility] would like to discharge home after trouble shooting is done on his at home NIV. On assessment today at 0645, 04/06/24, Mr. Hubbard is hypoxic on NIV, confused and pulling at mask, condition has deteriorated greatly. Mr. Hubbard is struggling and Morphine has been ordered. 1300 Comfort care orders placed as going home for hospice is not feasible at this time. 1500 Mr. Hubbard had cardiopulmonary arrest and passed peacefully with his family at bedside. Followup: Nimo Marino MD [Primary Care Provider] -
[2024-04-05] MEDS: LIDOCAINE JELLY 2%- 5 ML TUBE TOP ONE (17:06)
[2024-04-05] MEDS ORDERED: VANCOMYCIN 1.5 GM in NA CHLORIDE 0.9% 500 ML IVPB SCH (18:00)
[2024-04-05 18:25] VITALS: BMI 30.2
[2024-04-05] MEDS: TAMSULOSIN 0.4 MG SR CAP PO SCH (20:00)
[2024-04-05] MEDS: oxyBUTYnin chloride 5 MG TAB PO SCH (20:00)
--- NOTE | 2024-04-05 20:01 | P.CNS ---
Date of Consult: 04/05/24 Reason for Consult: Respiratory failure Chief Complaint: Respiratory failure hypotension History of Present Illness: Patient is 74 years of age was just recently discharged on a noninvasive ventilator due to nonspecific interstitial pneumonia with presumably significant fibrotic component patient was very hypoxic came very hypoxic and it appeared in the hospital with hypotension I saw him this morning BiPAP adjusted EPAP increased however he appears to be alert but tachypnea did well on Precedex drip patient was initially on Levophed Allergies No Known Allergies Allergy (Unverified 03/27/24 07:48) Home Medications: Atorvastatin Calcium 40 mg PO DAILY 03/27/24 Donepezil HCl 10 mg PO BEDTIME 03/27/24 Levothyroxine [Synthroid*] 200 mcg PO [id number] 03/27/24 Memantine HCl 10 mg PO BID* 03/27/24 Oxybutynin Chloride [Oxybutynin Chloride ER] 10 mg PO DAILY 03/27/24 Pantoprazole [Protonix Tab*] 40 mg PO DAILY 03/27/24 Quetiapine Fumarate [Seroquel] 25 mg PO BID* 03/27/24 Sertraline [Zoloft*] 100 mg PO DAILY 03/27/24 Tamsulosin [Flomax*] 0.4 mg PO BID 03/27/24 Trazodone [Desyrel*] 50 mg PO PRN PRN 03/27/24 levETIRAcetam [Keppra*] 500 mg PO BID #60 tab 03/29/24 predniSONE [Prednisone*] 20 mg PO BID #20 tab 04/02/24 - Past Medical/Surgical History Diabetic: No -: COPD -: asbestos -: Dementia -: CKD -: Seizure? -: Hernia repair -: Right hip surgery -: Cauterized ulcer -: appendectomy Psychosocial/ Personal History: . Lives in [place]. [employer]. Chooses DNR/DNI. Has home health, wheelchair, O2 concentrator, recently acquired NIV - Social History Alcohol use: No CD- Drugs: No Caffeine use: Yes Place of Residence: Home Review of Systems 10-point ROS is otherwise unremarkable General: Weakness Respiratory: Shortness of Breath Physical Examination Temp Pulse Resp BP Pulse Ox 97.8 F 70 27 H 117/62 90 L 04/05/24 16:00 04/05/24 19:40 04/05/24 18:00 04/05/24 18:00 04/05/24 19:40 General: Alert, Oriented x3, Moderate distress Respiratory: Crackles/rales Cardiovascular: No edema, Regular rate/rhythm, Normal S1 S2 Gastrointestinal: Normal bowel sounds, Soft and benign Musculoskeletal: No clubbing, No swelling Laboratory Data (last 24 hrs) 04/04/24 14:00 WBC 21.30 H Hgb 10.6 L Hct 32.6 L Plt Count 481 H - Problems (1) Nonspecific interstitial pneumonitis Current Visit: No Status: Acute Plan: Patient is 74 years of age has 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
[2024-04-05] MEDS ORDERED: levETIRAcetam 500 MG TAB PO SCH (21:00)
[2024-04-05] MEDS ORDERED: VANCOMYCIN 2 GM in NA CHLORIDE 0.9% 500 ML IVPB SCH (21:00)
[2024-04-06 06:28] LABS: Absolute Basophils 0.1 K/uL (0-0.5); Absolute Lymphocytes (CBC) 0.4 K/uL (0.7-4.9); Absolute Monocytes 0.6 K/uL (0.1-1.3); Absolute Neutrophil 17.5 K/uL (1.8-8.0); Basophils % 0.4 % (0-1.3); Hematocrit 29.5 % (39.6-49.0); Hemoglobin 9.6 g/dL (13.6-17.9); Lymphocytes % 2.2 % (15.3-44.8); MCH 29.8 pg (27.0-35.0); MCHC 32.7 g/dL (32.0-36.0); MCV 91.2 fL (80-100); MPV 8.5 fL (7.6-11.3); Monocytes % 3.1 % (3.3-12.3); Neutrophils % 94.3 % (41.7-73.7); Nucleated Red Blood Cells % 0.1 % (0-0); Platelets 362 thou/uL (152-406); RBC Red Blood Cell Count 3.23 M/uL (4.33-5.43); Red Cell Distribution Width 15.3 % (12.1-15.2)
[2024-04-06] MEDS ORDERED: LEVOTHYROXINE SOD 0.1 MG TAB PO SCH (06:30)
[2024-04-06 06:48] LABS: Albumin 2.1 g/dL (3.4-5.0); Albumin/Globulin Ratio 0.5 (1.1-1.8); Bilirubin Total 0.4 mg/dL (0.2-1.0); Globulin 4.2 g/dL (2.3-3.5); Magnesium 2.3 mg/dL (1.6-2.4); Phosphorus 3.2 mg/dL (2.5-4.9); Protein, Total 6.3 g/dL (6.4-8.2)
[2024-04-06] MEDS ORDERED: SERTRALINE HCL 100 MG TAB PO SCH (09:00)
[2024-04-06] MEDS: PANTOPRAZOLE 40MG TABLET PO SCH (09:09)
[2024-04-06 10:29] VITALS: TEMP 98.4
--- NOTE | 2024-04-06 12:27 | P.PN ---
Subjective Date of Service: 04/06/24 Chief Complaint: Respiratory failure hypotension Subjective: Worsening (Pt much more agitated, tachypneic, hypoxic than last pm.) <Carolyn Malone - Last Filed: 04/06/24 12:22> Date of Service: 04/06/24 <Juanito Carmona - Last Filed: 04/06/24 17:03> Review of Systems 10-point ROS is otherwise unremarkable General: As per HPI Respiratory: Shortness of Breath, SOB with Excertion, As per HPI Neurological: Incoordination, Other (hypoxia confusion) <Carolyn Malone - Last Filed: 04/06/24 12:22> Physical Examination - Vital Signs Temperature: 98.4 F Blood Pressure: 130/65 Pulse: 62 Respirations: 34 Pulse Ox (%): 88 - Physical Exam General: Moderate distress, Severe distress, Delirious HEENT: Atraumatic, Normocephalic Neck: Supple Respiratory: Diminished, Other (significant tachypnea and increased work of breathing) Cardiovascular: Regular rate/rhythm Capillary refill: >2 Seconds Gastrointestinal: Soft and benign Musculoskeletal: No clubbing Integumentary: No rashes Neurological: Abnormal strength, Abnormal affect Lymphatics: No axilla or inguinal lymphadenopathy External genitalia: Deferred Rectal: Deferred <Carolyn Malone - Last Filed: 04/06/24 12:22> Assessment And Plan - Plan Severe sepsis with shock Hypoxia and lactic acidosis Likely pulmonary source secondary history of asbestosis Anemia of chronic disease Mild CKD with WILLIS secondary to sepsis/shock Patient chooses DNR/DNI for CPR/intubation, pt and family decided on hospice, would like to go on NIV but current machine does not keep pt comfortable, brought to ICU to adjust settings. Pt very uncomfortable, sob, tachypneic, placed back on BiPap alternating with Vapotherm for comfort. Will attempt inpatient hospice instead of going home Telemetry Zosyn and vancomycin, white count down by almost half today 04/05/2024 Comfort measures/pain control pt weaned off levo x [address] Whitley following Dementia, solitary seizure, hypothyroidism, COPD Continue home meds as directed VTE/GI prophylaxis <Carolyn Malone - Last Filed: 04/06/24 12:22> - Plan Pt sid nd examined. I agree with the note by the PRICE CHECKER. Pt is not doing well. He is using BIPAp and waiting for hospice care team to evaluate him. His respiratory status worsened and his agreed to inpatient hospice care. Will give prn morphine and ativan. <Juanito Carmona - Last Filed: 04/06/24 17:03>
[2024-04-06 13:12] VITALS: BP 137/63
--- NOTE | 2024-04-06 16:50 | P.DS ---
Admission Date: 04/04/24 Discharge Date: 04/06/24 Reason for Admission: Respiratory failure hypotension Consultations: Dr. Whitley Brief History of Present Illness: Mr. Sami Shook is a 74-year-old gentleman with a past medical history of dementia, asbestosis, and COPD who was admitted on 03/27/2024 for dyspnea on his regular 5 L O2 via nasal cannula. During that admission, his oxygen requirement was 6 to 10 L. He was assessed by Dr. Whitley, received IV methylprednisone, scheduled nebs, and 1 unit of blood. There was some question of seizure activity at Dr. Whitley's office on the day of admission so Dr. Siegel was consulted and an EEG was performed which was reported as normal. The patient was started on Keppra 500 mg p.o. twice daily. He was then transitioned over to oral prednisone and discharged home with noninvasive ventilator and a 10 L flow oxygen concentrator on discharge 04/02/2024. Mrs. Hubbard says for the last 2 days she has tried to adjust the patient's BiPAP however he got agitated and pulled the mask off with pulse ox readings between 48 and 52. They had a Zoom appointment with his PCP and she directed him to the emergency department via EMS. Labs: WBC 21.3 with 89.7% neutrophils, platelets of 481. Anemia of chronic disease with a H&H of 10.6/32.6 CMP with a sodium of 134, BUN of 29, creatinine 1.54 with a GFR of 47, minimally elevated AST/ALT with no elevation in T. bili Lactate 4 secondary to hypoxemia, INR 1.27 Imaging: Chest x-ray impression: "Patchy bilateral airspace opacities, may reflect multifocal pneumonia or pulmonary edema." On arrival he was placed on BiPAP, initial ABG showed a pO2 of 62.6, on admission assessment patient tolerating BiPAP well with a rate of 22 with SpO2 of 100% His states there must be something wrong with the NIV set up at home and called to have evaluated. Mr. Hubbard declines intubation if his condition should deteriorate, declines CPR, he does except pressors and other interventions and will be admitted to ICU on Levophed. Hospital Course: 04/05/24 Mr. Hubbard is doing well on Bipap at 60% fio2, he intermittently uses Vapotherm for eating and drinking. Hospice came to consult for home hospice care. [facility] would like to discharge home after trouble shooting is done on his at home NIV. On assessment today at 0645, 04/06/24, Mr. Hubbard is hypoxic on NIV, confused and pulling at mask, condition has deteriorated greatly. Mr. Hubbard is struggling and Morphine has been ordered. 1300 Comfort care orders placed as going home for hospice is not feasible at this time. 1500 Mr. Hubbard had cardiopulmonary arrest and passed peacefully with his family at bedside. <Carolyn Malone - Last Filed: 04/06/24 16:45> Admission Date: 04/04/24 Discharge Date: 04/06/24 Hospital Course: Pt seen and examined. I agree with the note by the POWER HAIR CLIPPER. His respiratory status worsened and the decided to pursue comfort care while waiting for hospice care team evaluation. Pt passed at 1440 surrounded by his family members. <Juanito Carmona - Last Filed: 04/06/24 17:36> Disposition: Discharge Condition: Vital Signs/Physical Exam: Temp Pulse Resp BP Pulse Ox 98.4 F 71 25 H 137/63 82 L 04/06/24 12:28 04/06/24 13:00 04/06/24 13:24 04/06/24 13:00 04/06/24 14:00 General: Moderate distress, Severe distress, Other (this am at 0645, NIV changed out to BiPap alternating with Vapotherm) HEENT: Atraumatic, Normocephalic Neck: Supple Respiratory: Other (increased work of breathing, tachypnea, hypoxia) Cardiovascular: Regular rate/rhythm Capillary refill: >2 Seconds Gastrointestinal: Hypoactive Musculoskeletal: No clubbing, No swelling Integumentary: No rashes Neurological: Other (decreased LOC with agitation prior to comfort medication) Lymphatics: No axilla or inguinal lymphadenopathy External genitalia: Deferred Rectal: Deferred Laboratory Data at Discharge: WBC 18.60 thou/uL (4.3-10.9) H 04/06/24 05:50 Hgb 9.6 g/dL (13.6-17.9) L 04/06/24 05:50 Hct 29.5 % (39.6-49.0) L 04/06/24 05:50 Plt Count 362 thou/uL (152-406) 04/06/24 05:50 PT 14.5 SECONDS (9.4-12.5) H 04/05/24 04:50 INR 1.30 04/05/24 04:50 APTT 27.7 SECONDS (24.3-36.9) 04/05/24 04:50 Sodium 140 mEq/L (136-145) 04/06/24 05:50 Potassium 4.0 mEq/L (3.5-5.1) 04/06/24 05:50 BUN 37 mg/dL (7-18) H 04/06/24 05:50 Creatinine 1.35 mg/dL (0.70-1.30) H 04/06/24 05:50 Glucose 157 mg/dL (74-106) H 04/06/24 05:50 Phosphorus 3.2 mg/dL (2.5-4.9) 04/06/24 05:50 Magnesium 2.3 mg/dL (1.6-2.4) 04/06/24 05:50 Total Bilirubin 0.4 mg/dL (0.2-1.0) 04/06/24 05:50 AST 45 U/L (15-37) H 04/06/24 05:50 ALT 52 U/L (16-61) 04/06/24 05:50 Alkaline Phosphatase 116 U/L (45-117) D 04/06/24 05:50 Triglycerides 87 mg/dL (<150) 04/05/24 04:50 Cholesterol 141 mg/dL (<200) 04/05/24 04:50 HDL Cholesterol 40 mg/dL (40-60) 04/05/24 04:50 Cholesterol/HDL Ratio 3.53 04/05/24 04:50 <Malone,Carolyn Armin - Last Filed: 04/06/24 16:45> Vital Signs/Physical Exam: Temp Pulse Resp BP Pulse Ox 98.4 F 71 25 H 137/63 82 L 04/06/24 12:28 04/06/24 13:00 04/06/24 13:24 04/06/24 13:00 04/06/24 14:00 Laboratory Data at Discharge: WBC 18.60 thou/uL (4.3-10.9) H 04/06/24 05:50 Hgb 9.6 g/dL (13.6-17.9) L 04/06/24 05:50 Hct 29.5 % (39.6-49.0) L 04/06/24 05:50 Plt Count 362 thou/uL (152-406) 04/06/24 05:50 PT 14.5 SECONDS (9.4-12.5) H 04/05/24 04:50 INR 1.30 04/05/24 04:50 APTT 27.7 SECONDS (24.3-36.9) 04/05/24 04:50 Sodium 140 mEq/L (136-145) 04/06/24 05:50 Potassium 4.0 mEq/L (3.5-5.1) 04/06/24 05:50 BUN 37 mg/dL (7-18) H 04/06/24 05:50 Creatinine 1.35 mg/dL (0.70-1.30) H 04/06/24 05:50 Glucose 157 mg/dL (74-106) H 04/06/24 05:50 Phosphorus 3.2 mg/dL (2.5-4.9) 04/06/24 05:50 Magnesium 2.3 mg/dL (1.6-2.4) 04/06/24 05:50 Total Bilirubin 0.4 mg/dL (0.2-1.0) 04/06/24 05:50 AST 45 U/L (15-37) H 04/06/24 05:50 ALT 52 U/L (16-61) 04/06/24 05:50 Alkaline Phosphatase 116 U/L (45-117) D 04/06/24 05:50 Triglycerides 87 mg/dL (<150) 04/05/24 04:50 Cholesterol 141 mg/dL (<200) 04/05/24 04:50 HDL Cholesterol 40 mg/dL (40-60) 04/05/24 04:50 Cholesterol/HDL Ratio 3.53 04/05/24 04:50 <Juanito Carmona - Last Filed: 04/06/24 17:36> <Malone,Carolyn Armin - Last Filed: 04/06/24 16:45> <Juanito Carmona - Last Filed: 04/06/24 17:36> Home Medications: Atorvastatin Calcium 40 mg PO DAILY 03/27/24 Donepezil HCl 10 mg PO BEDTIME 03/27/24 Levothyroxine [Synthroid*] 200 mcg PO [id number] 03/27/24 Memantine HCl 10 mg PO BID* 03/27/24 Oxybutynin Chloride [Oxybutynin Chloride ER] 10 mg PO DAILY 03/27/24 Pantoprazole [Protonix Tab*] 40 mg PO DAILY 03/27/24 Quetiapine Fumarate [Seroquel] 25 mg PO BID* 03/27/24 Sertraline [Zoloft*] 100 mg PO DAILY 03/27/24 Tamsulosin [Flomax*] 0.4 mg PO BID 03/27/24 Trazodone [Desyrel*] 50 mg PO PRN PRN 03/27/24 levETIRAcetam [Keppra*] 500 mg PO BID #60 tab 03/29/24 predniSONE [Prednisone*] 20 mg PO BID #20 tab 04/02/24 Physician Discharge Instructions: 04/05/24 Mr. Hubbard is doing well on Bipap at 60% fio2, he intermittently uses Vapotherm for eating and drinking. Hospice came to consult for home hospice care. [facility] would like to discharge home after trouble shooting is done on his at home NIV. On assessment today at 0645, 04/06/24, Mr. Hubbard is hypoxic on NIV, confused and pulling at mask, condition has deteriorated greatly. Mr. Hubbard is struggling and Morphine has been ordered. 1300 Comfort care orders placed as going home for hospice is not feasible at this time. 1500 Mr. Hubbard had cardiopulmonary arrest and passed peacefully with his family at bedside.
[2024-04-06 21:54] VITALS: O2SAT 90
== END 2024-04-06 14:50 | disposition expired | DRG 871 ==
LOC: ER 13:41 → ERHOLD 16:44 → 3RD-ICU 17:41
PROVIDERS: ADMIT Hospitalist; ATTEND Hospitalist
PROC: 3E033XZ Introduction of Vasopressor into Peripheral Vein, Percutaneous Approach (ICD-10-PCS; principal; 2024-04-04)
PROC: 4A033R1 Measurement of Arterial Saturation, Peripheral, Percutaneous Approach (ICD-10-PCS; 2024-04-04)
PROC: 5A09457 Assistance with Respiratory Ventilation, 24-96 Consecutive Hours, Continuous Positive Airway Pressure (ICD-10-PCS; 2024-04-04)
PROC: 5A0945A Assistance with Respiratory Ventilation, 24-96 Consecutive Hours, High Flow/Velocity Cannula (ICD-10-PCS; 2024-04-05)
PROC: 0T9B70Z Drainage of Bladder with Drainage Device, Via Natural or Artificial Opening (ICD-10-PCS; 2024-04-05)
DX: A41.9 Sepsis, unspecified organism (principal); J18.9 Pneumonia, unspecified organism; R65.21 Severe sepsis with septic shock; J96.01 Acute respiratory failure with hypoxia; E87.20 Acidosis, unspecified; J44.1 Chronic obstructive pulmonary disease with (acute) exacerbation; J44.0 Chronic obstructive pulmonary disease with (acute) lower respiratory infection; N17.9 Acute kidney failure, unspecified; F02.811 Dementia in other diseases classified elsewhere, unspecified severity, with agitation; G30.9 Alzheimer's disease, unspecified; N18.9 Chronic kidney disease, unspecified; D63.1 Anemia in chronic kidney disease; I48.91 Unspecified atrial fibrillation; E66.9 Obesity, unspecified; J61 Pneumoconiosis due to asbestos and other mineral fibers; E03.9 Hypothyroidism, unspecified; Z66 Do not resuscitate; Z68.34 Body mass index [BMI] 34.0-34.9, adult; Z79.52 Long term (current) use of systemic steroids; Z90.49 Acquired absence of other specified parts of digestive tract; Z79.890 Hormone replacement therapy; Z87.891 Personal history of nicotine dependence; Z79.899 Other long term (current) drug therapy
CPT/HCPCS: 36415; 36556; 36600; 71045; 80053; 80061; 82805; 83605; 83735; 84100; 85025; 85610; 85730; 87040; 93005; 94660; 96365; 96366; 96367; 96368; 99285; J0696; J1644; J1940; J2270; J2470; J2543; J2919; J7030; J7040; J7050; J7060; J7613; J7644